=== PATIENT | female | born 1960 | race American Indian/Alaskan Native ===

== ENCOUNTER 2016-06-14 16:21 | Emergency (ER) | payer OTHER ==
--- NOTE | 2016-06-14 17:08 | Emergency Department Report ---
Chief Complaint: Headache Stated Complaint: COUGH/HEAD PAIN Time Seen by Provider: 06/14/16 16:58 - HPI History of Present Illness: 56-year-old female presents today complaining of cough and headache. Patient's states that she's been coughing and wheezing times one week. Complains of headache that comes and goes 3 days over her left temporal region. Denies head injury or trauma. Positive for history of headaches but states she was diagnosed with a brain tumor at the time that resolved postsurgery. Denies chest pain, shortness of breath, abdominal pain. - ROS Review of Systems: Per HPI - Exam Vital Signs: Vital Signs 06/14/16 16:26 Temperature 98 F Pulse Rate 81 Respiratory 18 Rate Blood Pressure 130/87 O2 Sat by Pulse 95 Oximetry Physical Exam: General: 56-year-old female in no acute distress. Well-developed, well- nourished. CV: Regular rate and rhythm. Lungs: Clear to auscultation bilaterally. Neuro: Alert and oriented 3, normal gait, fluid speech, EOMs intact, normal facial sensation, strength exam 5/5 upper and lower extremities, GCS equals 15 MSE screening note: Focused history and physical exam performed. Due to findings the following was ordered: ED Disposition for MSE Condition: Stable
[2016-06-14 18:08] LABS: Hematocrit 37.4 % (30.3-42.9); Hemoglobin 12.2 gm/dl (10.1-14.3); Mean Corpuscular HGB Conc 33 % (30-34); Mean Corpuscular Hemoglobin 28 pg (28-32); Mean Corpuscular Volume 87 fl (79-97); Platelet Count 327 K/mm3 (140-440); Red Blood Count 4.28 M/mm3 (3.65-5.03); Red Cell Distribution Width 16.1 % (13.2-15.2); White Blood Count 6.9 K/mm3 (4.5-11.0)
--- NOTE | 2016-06-14 18:08 | Cat Scan Report ---
FINAL REPORT EXAM: CT HEAD/BRAIN WO CON HISTORY: Headache TECHNIQUE: CT examination of the head without IV contrast PRIORS: 06/05/2015 FINDINGS: Complete opacification of the ethmoid and left frontal sinuses. Near complete opacification of the right frontal sinus and both sphenoid sinuses. Moderate fluid level in left sphenoid sinus. Findings more prominent than comparison. Moderate opacification of the left mastoid air cells inferiorly. Clear right mastoid air cells and middle ear cavities bilaterally. Left mastoid air cell findings unchanged. Again noted is postoperative change with right suboccipital craniectomy. Again noted is unchanged underlying postoperative encephalomalacia with volume loss in the right cerebellar hemisphere. Bone windows demonstrate no acute fracture. The brain is without mass, mass effect, hemorrhage, or acute infarct. There is no extra-axial intracranial bleed, brain bleed, or midline shift. The ventricles and sulci are age-appropriate. IMPRESSION: No acute CVA, intracranial bleed, or brain mass Worsened paranasal sinus disease with fluid levels in the sphenoid sinuses suggesting acute sinusitis Unchanged left mastoid air cell opacification may reflect eustachian tube dysfunction. The differential includes left mastoiditis Stable postoperative changes with encephalomalacia and volume loss in the posteromedial right cerebellar hemisphere
[2016-06-14 18:25] LABS: Anion Gap 20 mmol/L; BUN/Creatinine Ratio 18.33; Blood Urea Nitrogen 11 mg/dL (7-17); Carbon Dioxide 27 mmol/L (22-30); Chloride 102.3 mmol/L (98-107); Glucose 94 mg/dL (65-100); Potassium 4.2 mmol/L (3.6-5.0); Sodium 145 mmol/L (137-145)
[2016-06-14 18:52] LABS: Basophils % (Manual) 0 % (0.0-1.8); Blastocytes % (Manual) 0 %
[2016-06-14 18:53] LABS: Anisocytosis 1+; Poikilocytosis Few
[2016-06-14 18:54] LABS: Diff Status Complete
[2016-06-14 23:49] VITALS: BP 167/95
[2016-06-15] MEDS ORDERED: ATROVENT IH ONE (01:00)
[2016-06-15] MEDS ORDERED: PROVENTIL IH ONE (01:00)
[2016-06-15] MEDS ORDERED: TORADOL IM ONE (01:01)
--- NOTE | 2016-06-15 01:08 | Emergency Department Report ---
HPI - General Chief Complaint: Headache Time Seen by Provider: 06/14/16 16:58 - HPI HPI: Room 10 The patient is a 56-year-old female presenting with a chief complaint of headache. The patient states for 1 week she has had a cough and nasal congestion. The patient states she's been using Claritin generic Flonase antitussin DM without relief. The patient states for the past 3 days she has had intermittent left parietal headache. Patient denies history of fever nausea or vomiting. Location: [see above] Duration: [see above] Quality: Pain Severity: Moderate Modifying factors: [see above] Context: [see above] Mode of transportation: [not driving] ED Past Medical Hx - Past Medical History Hx Hypertension: Yes Hx Asthma: Yes Additional medical history: allergies, normal coronaries - Surgical History Additional Surgical History: brain tumor removed,HYSTERECTOMY - Family History Family history: no significant - Social History Smoking Status: Never Smoker Substance Use Type: None - Medications Home Medications: Home Medications Medication Instructions Recorded Confirmed Last Taken Type Carvedilol [Coreg] 3.125 mg PO BID #60 tablet 07/18/15 03/31/16 01/08/16 Rx Lisinopril [Zestril TAB] 10 mg PO QDAY #30 tablet 07/18/15 03/31/16 01/08/16 Rx ALBUTEROL NEB's [Proventil 0.083% 2.5 mg IH Q2H PRN #30 nebu 04/05/16 Unknown Rx NEBS] Arformoterol Nebu [Brovana Nebu] 15 mcg IH Q12HRT #30 ml 04/05/16 Unknown Rx Benzonatate [Tessalon Perles] 100 mg PO Q8HR PRN #15 capsule 04/05/16 Unknown Rx Budesoni/Formotero 160-4.5(Nf) 2 puff IH BID #1 inha 04/05/16 Unknown Rx [Symbicort 160-4.5 (Nf)] Ipratropium/Albuterol Sulfate 1 ampul IH BIDRT #30 ampul.neb 04/05/16 Unknown Rx [Duoneb 0.5 mg-3 mg/3 ml Soln] Prednisone [predniSONE 10 mg 10 mg PO .TAPER #52 tab 04/05/16 Unknown Rx (6-Day Pack, 21 Tabs)] guaiFENesin [Robitussin] 200 mg PO Q4H PRN #30 oral.liqd 04/05/16 Unknown Rx Azithromycin [Zithromax Z-SAMIRA] 0 mg PO DAILY #6 tab 06/15/16 Unknown Rx HYDROcodone/APAP 5-325 [[place] 1 each PO Q6HR PRN #10 tablet 06/15/16 Unknown Rx 5/325] Promethazine [Phenergan TAB] 25 mg PO Q6HR PRN #10 tab 06/15/16 Unknown Rx ED Review of Systems ROS: Stated complaint: COUGH/HEAD PAIN Other details as noted in HPI Comment: All other systems reviewed and negative Constitutional: denies: chills, fever Eyes: denies: eye pain, eye discharge, vision change ENT: denies: ear pain, throat pain Respiratory: cough Cardiovascular: denies: chest pain, palpitations Endocrine: no symptoms reported Gastrointestinal: denies: abdominal pain, nausea, diarrhea Genitourinary: denies: urgency, dysuria, discharge Musculoskeletal: denies: back pain, joint swelling, arthralgia Skin: denies: rash, lesions Neurological: headache Psychiatric: denies: anxiety, depression Hematological/Lymphatic: denies: easy bleeding, easy bruising Physical Exam - Physical Exam Vital Signs: Vital Signs 06/14/16 06/14/16 16:26 23:48 Temperature 98 F Pulse Rate 81 75 Respiratory 18 20 Rate Blood Pressure 130/87 Blood Pressure 167/95 [Right] O2 Sat by Pulse 95 97 Oximetry Physical Exam: GENERAL: The patient is well-developed well-nourished female lying on stretcher not appearing to be in acute distress. [] HEENT: Normocephalic. Atraumatic. Extraocular motions are intact. Patient has moist mucous membranes. NECK: Supple. No meningitic signs are noted. Trachea midline CHEST/LUNGS: Faint expiratory wheeze. There is no respiratory distress noted. HEART/CARDIOVASCULAR: Regular. There is no tachycardia. There is no gallop rub or murmur. ABDOMEN: Abdomen is soft, nontender. Patient has normal bowel sounds. There is no abdominal distention. SKIN: There is no rash. There is no edema. There is no diaphoresis. NEURO: The patient is awake, alert, and oriented. The patient is cooperative. The patient has no focal neurologic deficits. The patient has normal speech MUSCULOSKELETAL: There is no evidence of acute injury. ED Course Vital Signs 06/14/16 06/14/16 16:26 23:48 Temperature 98 F Pulse Rate 81 75 Respiratory 18 20 Rate Blood Pressure 130/87 Blood Pressure 167/95 [Right] O2 Sat by Pulse 95 97 Oximetry ED Medical Decision Making - Lab Data Result diagrams: 06/14/16 17:51 06/14/16 17:51 Laboratory Tests 06/14/16 06/14/16 17:51 17:51 WBC 6.9 RBC 4.28 Hgb 12.2 Hct 37.4 MCV 87 MCH 28 MCHC 33 RDW 16.1 H Plt Count 327 Eos % (Auto) Line Construction Engineer Add Manual Diff Complete Total Counted 100 Seg Neuts % (Manual) 55.0 Band Neutrophils % 0 Lymphocytes % (Manual) 23.0 Reactive Lymphs % (Man) 0 Monocytes % (Manual) 7.0 Eosinophils % (Manual) 15.0 H Basophils % (Manual) 0 Metamyelocytes % 0 Myelocytes % 0 Promyelocytes % 0 Blast Cells % 0 Nucleated RBC % Not Reportable Seg Neutrophils # Man 3.8 Band Neutrophils # 0.0 Lymphocytes # (Manual) 1.6 Abs React Lymphs (Man) 0.0 Monocytes # (Manual) 0.5 Eosinophils # (Manual) 1.0 H Basophils # (Manual) 0.0 Metamyelocytes # 0.0 Myelocytes # 0.0 Promyelocytes # 0.0 Blast Cells # 0.0 WBC Morphology Not Reportable Hypersegmented Neuts Not Reportable Hyposegmented Neuts Not Reportable Hypogranular Neuts Not Reportable Smudge Cells Not Reportable Toxic Granulation Not Reportable Toxic Vacuolation Not Reportable Dohle Bodies Not Reportable Pelger-Huet Anomaly Not Reportable Manny Rods Not Reportable Platelet Estimate Appears normal Clumped Platelets Not Reportable Plt Clumps, EDTA Not Reportable Large Platelets Not Reportable Giant Platelets Not Reportable Platelet Satelliting Not Reportable Plt Morphology Comment Not Reportable RBC Morphology Not Reportable Dimorphic RBCs Not Reportable Polychromasia Not Reportable Hypochromasia Not Reportable Poikilocytosis Few Anisocytosis 1+ Microcytosis Not Reportable Macrocytosis Not Reportable Spherocytes Not Reportable Pappenheimer Bodies Not Reportable Sickle Cells Not Reportable Target Cells Not Reportable Tear Drop Cells Not Reportable Ovalocytes Not Reportable Helmet Cells Not Reportable [place] Bodies Not Reportable [place] Rings Not Reportable [place] Cells Not Reportable Bite Cells Not Reportable Crenated Cell Not Reportable Elliptocytes Not Reportable Acanthocytes (Spur) Not Reportable Rouleaux Not Reportable Hemoglobin C Crystals Not Reportable Schistocytes Not Reportable Malaria parasites Not Reportable Tony Bodies Not Reportable Hem Pathologist Commnt No Sodium 145 Potassium 4.2 Chloride 102.3 Carbon Dioxide 27 Anion Gap 20 BUN 11 Creatinine 0.6 L Estimated GFR > 60 BUN/Creatinine Ratio 18.33 Glucose 94 Calcium 9.0 - Radiology Data Radiology results: report reviewed (CT head), image reviewed (chest x-ray, CT head) interpreted by me: Chest x-ray-no focal infiltrates, no pneumothorax CT head (read by radiologist)-no acute CVA, intracranial bleed or brain mass. Or some paranasal sinus disease with low levels in the sphenoid sinuses suggesting acute sinusitis. Unchanged left mastoids there cell opacification may reflect eustachian tube dysfunction. The differential includes left mastoiditis. Stable postoperative changes with encephalomalacia and volume loss in the posterior medial right cerebellar hemisphere - Differential Diagnosis ICH, brain mass, headache Critical care attestation.: If time is entered above; I have spent that time in minutes in the direct care of this critically ill patient, excluding procedure time. ED Disposition Clinical Impression: Acute sinusitis, Headache, Asthma exacerbation Disposition: DISCHARGED TO HOME OR SELFCARE Is pt being admited?: No Does the pt Need Aspirin: No Condition: Stable Instructions: Asthma (ED), Sinusitis (ED) Additional Instructions: Return to the emergency department immediately should you develop worsening symptoms, fever, inability to tolerate food or liquid or any other concerns. Prescriptions: Azithromycin [Zithromax Z-SAMIRA] 0 mg PO DAILY #6 tab HYDROcodone/APAP 5-325 [[place] 5/325] 1 each PO Q6HR PRN #10 tablet PRN Reason: Pain Promethazine [Phenergan TAB] 25 mg PO Q6HR PRN #10 tab PRN Reason: Nausea Referrals: SYBIL KAUFMAN MD [Primary Care Provider] - 3-5 Days VLADIMIR BARBOZA MD [Staff Physician] - 3-5 Days (Dr. Barboza is an circuit board repair technician (ear nose and throat doctor). Please follow up with her for further evaluation) Time of Disposition: 01:13
--- NOTE | 2016-06-15 10:41 | XRay Report ---
CHEST 2 VIEWS: FINDINGS: There is atelectasis or infiltrate in the medial segment of the right middle lobe. Otherwise, the lungs are clear. The heart and pulmonary vessels are normal. There is no pleural fluid. IMPRESSION: Minimal right middle lobe atelectasis or infiltrate.
== END 2016-06-15 01:51 | disposition home or self-care (01) ==
LOC: ED 16:21
DX: J01.90 Acute sinusitis, unspecified (principal); J45.901 Unspecified asthma with (acute) exacerbation; R51 Headache; I10 Essential (primary) hypertension
CPT/HCPCS: 36415; 70450; 71020; 80048; 85007; 85025; 94640; 96372; 99284; J1885

== ENCOUNTER 2016-09-04 21:18 | Emergency (ER) | payer OTHER ==
[2016-09-04] MEDS ORDERED: BENADRYL IM ONE (23:53)
[2016-09-04] MEDS ORDERED: DECADRON IM ONE (23:53)
[2016-09-04] MEDS ORDERED: TYLENOL #3 PO ONE (23:53)
--- NOTE | 2016-09-04 23:53 | Emergency Department Report ---
- General Chief complaint: Animal Bite Stated complaint: BUG STING/BILATERAL EYE/L SHOULDER PAIN Time Seen by Provider: 09/04/16 23:36 Source: patient, family Mode of arrival: Ambulatory Limitations: No Limitations - History of Present Illness Initial comments: Patient here reports that she got stung by something but she doesn't know what it is. She said her forehead to the middle is red swollen and it hurts. She reports pain is 6 out of 10 and achy and. Denies any headache. She said there is swelling beside her eyes. She said this happened 4 days ago but it's gotten worse today. She reports itching. No medication taken per patient. She denies any change in her vision or pain in her eyes. She reports the pain is at the bite area on her for it. Denies any swelling of throat, itchy throat, coughing, wheezing, stridor or chest pain and shortness of breath. Blood pressure in triage is 163/111 and she is asymptomatic. Patient has a history of high blood pressure and takes medication but she says she did not take her medicine today. Denies any fever or chills. MD complaint: insect bite/sting, other (redness and swelling to forehead. Swelling to side both eyes.) Onset/Timin -: days(s) Tetanus Up to Date: yes Location: head, face Severity: moderate Severity scale (0 -10): 6 Quality: aching, other (itching) Consistency: constant Improves with: none Worsens with: palpation Context: witnessed insect bite Associated symptoms: denies other symptoms Treatments Prior to Arrival: none - Related Data Previous Rx's Medication Instructions Recorded Last Taken Type Carvedilol [Coreg] 3.125 mg PO BID #60 tablet 07/18/15 01/08/16 Rx Lisinopril [Zestril TAB] 10 mg PO QDAY #30 tablet 07/18/15 01/08/16 Rx ALBUTEROL NEB's [Proventil 0.083% 2.5 mg IH Q2H PRN #30 nebu 04/05/16 Unknown Rx NEBS] Arformoterol Nebu [Brovana Nebu] 15 mcg IH Q12HRT #30 ml 04/05/16 Unknown Rx Benzonatate [Tessalon Perles] 100 mg PO Q8HR PRN #15 capsule 04/05/16 Unknown Rx Budesoni/Formotero 160-4.5(Nf) 2 puff IH BID #1 inha 04/05/16 Unknown Rx [Symbicort 160-4.5 (Nf)] Ipratropium/Albuterol Sulfate 1 ampul IH BIDRT #30 ampul.neb 04/05/16 Unknown Rx [Duoneb 0.5 mg-3 mg/3 ml Soln] Prednisone [predniSONE 10 mg 10 mg PO .TAPER #52 tab 04/05/16 Unknown Rx (6-Day Pack, 21 Tabs)] guaiFENesin [Robitussin] 200 mg PO Q4H PRN #30 oral.liqd 04/05/16 Unknown Rx Azithromycin [Zithromax Z-SAMIRA] 0 mg PO DAILY #6 tab 06/15/16 Unknown Rx HYDROcodone/APAP 5-325 [[place] 1 each PO Q6HR PRN #10 tablet 06/15/16 Unknown Rx 5/325] Promethazine [Phenergan TAB] 25 mg PO Q6HR PRN #10 tab 06/15/16 Unknown Rx HYDROcodone/HOMATROP 5-1.5 5 ml PO Q4HR PRN #150 ml 06/17/16 Unknown Rx [HYDROcodone-Homatropin 5-1.5 mg per 5 ML] Prednisone [predniSONE 10 mg 10 mg PO .TAPER #1 tab.ds.pk 06/17/16 Unknown Rx (6-Day Pack, 21 Tabs)] Pantoprazole [Protonix TAB] 20 mg PO QDAY #30 tablet. 06/18/16 Unknown Rx Bacitracin/Polymixin B [Polysporin] 1 applic TP BID #1 tube 09/05/16 Unknown Rx Cetirizine HCl [ZyrTEC] 10 mg PO QAM #5 capsule 09/05/16 Unknown Rx Sulfamethoxazole/Trimethoprim 1 each PO BID #20 tablet 09/05/16 Unknown Rx [Bactrim DS TAB] predniSONE [Deltasone] 20 mg PO QDAY #3 tab 09/05/16 Unknown Rx traMADol [Ultram] 50 mg PO Q6HR PRN #20 tablet 09/05/16 Unknown Rx Allergies Allergy/AdvReac Type Severity Reaction Status Date / Time Penicillins Allergy Rash Verified 05/30/15 13:40 Abscess Boil HPI - HPI Chief Complaint: Animal Bite Stated Complaint: BUG STING/BILATERAL EYE/L SHOULDER PAIN Time Seen by Provider: 09/04/16 23:36 Home Medications: Previous Rx's Medication Instructions Recorded Last Taken Type Carvedilol [Coreg] 3.125 mg PO BID #60 tablet 07/18/15 01/08/16 Rx Lisinopril [Zestril TAB] 10 mg PO QDAY #30 tablet 07/18/15 01/08/16 Rx ALBUTEROL NEB's [Proventil 0.083% 2.5 mg IH Q2H PRN #30 nebu 04/05/16 Unknown Rx NEBS] Arformoterol Nebu [Brovana Nebu] 15 mcg IH Q12HRT #30 ml 04/05/16 Unknown Rx Benzonatate [Tessalon Perles] 100 mg PO Q8HR PRN #15 capsule 04/05/16 Unknown Rx Budesoni/Formotero 160-4.5(Nf) 2 puff IH BID #1 inha 04/05/16 Unknown Rx [Symbicort 160-4.5 (Nf)] Ipratropium/Albuterol Sulfate 1 ampul IH BIDRT #30 ampul.neb 04/05/16 Unknown Rx [Duoneb 0.5 mg-3 mg/3 ml Soln] Prednisone [predniSONE 10 mg 10 mg PO .TAPER #52 tab 04/05/16 Unknown Rx (6-Day Pack, 21 Tabs)] guaiFENesin [Robitussin] 200 mg PO Q4H PRN #30 oral.liqd 04/05/16 Unknown Rx Azithromycin [Zithromax Z-SAMIRA] 0 mg PO DAILY #6 tab 06/15/16 Unknown Rx HYDROcodone/APAP 5-325 [[place] 1 each PO Q6HR PRN #10 tablet 06/15/16 Unknown Rx 5/325] Promethazine [Phenergan TAB] 25 mg PO Q6HR PRN #10 tab 06/15/16 Unknown Rx HYDROcodone/HOMATROP 5-1.5 5 ml PO Q4HR PRN #150 ml 06/17/16 Unknown Rx [HYDROcodone-Homatropin 5-1.5 mg per 5 ML] Prednisone [predniSONE 10 mg 10 mg PO .TAPER #1 tab.ds.pk 06/17/16 Unknown Rx (6-Day Pack, 21 Tabs)] Pantoprazole [Protonix TAB] 20 mg PO QDAY #30 tablet. 06/18/16 Unknown Rx Bacitracin/Polymixin B [Polysporin] 1 applic TP BID #1 tube 09/05/16 Unknown Rx Cetirizine HCl [ZyrTEC] 10 mg PO QAM #5 capsule 09/05/16 Unknown Rx Sulfamethoxazole/Trimethoprim 1 each PO BID #20 tablet 09/05/16 Unknown Rx [Bactrim DS TAB] predniSONE [Deltasone] 20 mg PO QDAY #3 tab 09/05/16 Unknown Rx traMADol [Ultram] 50 mg PO Q6HR PRN #20 tablet 09/05/16 Unknown Rx Allergies/Adverse Reactions: Allergies Allergy/AdvReac Type Severity Reaction Status Date / Time Penicillins Allergy Rash Verified 05/30/15 13:40 ED Review of Systems ROS: Stated complaint: BUG STING/BILATERAL EYE/L SHOULDER PAIN Other details as noted in HPI Comment: All other systems reviewed and negative Constitutional: denies: chills, fever Eyes: denies: eye pain, eye discharge, vision change ENT: denies: ear pain, throat pain, congestion Respiratory: no symptoms reported Cardiovascular: denies: chest pain, palpitations, edema, syncope Musculoskeletal: arthralgia (left shoulder which is chronic). denies: back pain , joint swelling Skin: pruritus, other (status post insect bike 4 days ago with swelling to the facial area beside eyes and redness and pain to mid forehead.) Neurological: denies: headache, weakness, numbness, paresthesias, confusion, abnormal gait, vertigo ED Past Medical Hx - Past Medical History Previous Medical History?: Yes Hx Hypertension: Yes Hx Asthma: Yes Additional medical history: allergies, normal coronaries - Surgical History Past Surgical History?: Yes Additional Surgical History: brain tumor removed,HYSTERECTOMY - Family History Family history: hypertension - Social History Smoking Status: Never Smoker Substance Use Type: None - Medications Home Medications: Home Medications Medication Instructions Recorded Confirmed Last Taken Type Carvedilol [Coreg] 3.125 mg PO BID #60 tablet 07/18/15 03/31/16 01/08/16 Rx Lisinopril [Zestril TAB] 10 mg PO QDAY #30 tablet 07/18/15 03/31/16 01/08/16 Rx ALBUTEROL NEB's [Proventil 0.083% 2.5 mg IH Q2H PRN #30 nebu 04/05/16 Unknown Rx NEBS] Arformoterol Nebu [Brovana Nebu] 15 mcg IH Q12HRT #30 ml 04/05/16 Unknown Rx Benzonatate [Tessalon Perles] 100 mg PO Q8HR PRN #15 capsule 04/05/16 Unknown Rx Budesoni/Formotero 160-4.5(Nf) 2 puff IH BID #1 inha 04/05/16 Unknown Rx [Symbicort 160-4.5 (Nf)] Ipratropium/Albuterol Sulfate 1 ampul IH BIDRT #30 ampul.neb 04/05/16 Unknown Rx [Duoneb 0.5 mg-3 mg/3 ml Soln] Prednisone [predniSONE 10 mg 10 mg PO .TAPER #52 tab 04/05/16 Unknown Rx (6-Day Pack, 21 Tabs)] guaiFENesin [Robitussin] 200 mg PO Q4H PRN #30 oral.liqd 04/05/16 Unknown Rx Azithromycin [Zithromax Z-SAMIRA] 0 mg PO DAILY #6 tab 06/15/16 Unknown Rx HYDROcodone/APAP 5-325 [[place] 1 each PO Q6HR PRN #10 tablet 06/15/16 Unknown Rx 5/325] Promethazine [Phenergan TAB] 25 mg PO Q6HR PRN #10 tab 06/15/16 Unknown Rx HYDROcodone/HOMATROP 5-1.5 5 ml PO Q4HR PRN #150 ml 06/17/16 Unknown Rx [HYDROcodone-Homatropin 5-1.5 mg per 5 ML] Prednisone [predniSONE 10 mg 10 mg PO .TAPER #1 tab.ds.pk 06/17/16 Unknown Rx (6-Day Pack, 21 Tabs)] Pantoprazole [Protonix TAB] 20 mg PO QDAY #30 tablet.dr 06/18/16 Unknown Rx Bacitracin/Polymixin B [Polysporin] 1 applic TP BID #1 tube 09/05/16 Unknown Rx Cetirizine HCl [ZyrTEC] 10 mg PO QAM #5 capsule 09/05/16 Unknown Rx Sulfamethoxazole/Trimethoprim 1 each PO BID #20 tablet 09/05/16 Unknown Rx [Bactrim DS TAB] predniSONE [Deltasone] 20 mg PO QDAY #3 tab 09/05/16 Unknown Rx traMADol [Ultram] 50 mg PO Q6HR PRN #20 tablet 09/05/16 Unknown Rx ED Physical Exam - General Limitations: No Limitations General appearance: alert, in no apparent distress - Head Head exam: Present: atraumatic, normocephalic, normal inspection - Eye Eye exam: Present: normal appearance, PERRL, EOMI. Absent: conjunctival injection, periorbital swelling, periorbital tenderness Pupils: Present: normal accommodation - ENT ENT exam: Present: normal exam, normal orophraynx, mucous membranes moist, TM's normal bilaterally, normal external ear exam, other (uvula is midline and oral airways patent) - Neck Neck exam: Present: normal inspection, full ROM. Absent: tenderness, meningismus, lymphadenopathy - Expanded Neck Exam Expanded Neck exam: Absent: tenderness, midline deformity, anterior neck swelling, tracheal deviation - Respiratory Respiratory exam: Present: normal lung sounds bilaterally. Absent: respiratory distress, chest wall tenderness - Cardiovascular Cardiovascular Exam: Present: regular rate, normal rhythm, normal heart sounds - Extremities Exam Extremities exam: Present: normal inspection, full ROM, normal capillary refill. Absent: tenderness, pedal edema, joint swelling, calf tenderness - Expanded Upper Extremity Exam Left General: Present: normal inspection Shoulder Exam: Present: normal inspection, full ROM. Absent: tenderness, swelling, abrasion, laceration, ecchymosis, deformity, crepidus, dislocation, erythema, tenderness over AC joint Upper Arm exam: Present: normal inspection, full ROM. Absent: tenderness, swelling, abrasion, laceration, ecchymosis, deformity, crepidus, dislocation, erythema Elbow exam: Present: normal inspection, full ROM. Absent: tenderness, swelling , abrasion, laceration, ecchymosis, deformity, crepidus, dislocation, erythema, effusion, pain w/ pronation/supination, tenderness over radial head Forearm Wrist exam: Present: normal inspection, full ROM. Absent: tenderness, swelling, abrasion, laceration, ecchymosis, deformity, crepidus, dislocation, erythema, tenderness over anatomical snuff box, pain with axial thumb loading Hand Wrist exam: Present: normal inspection, full ROM. Absent: tenderness, swelling, abrasion, laceration, ecchymosis, deformity, crepidus, dislocation, erythema, amputation, nail avulsion, subungual hematoma Neuro motor exam: Present: wrist extension intact, thumb opposition intact, thumb IP flexion intact, thumb adduction intact, fingers 2-5 abduction intact Neurosensory exam: Present: 2-point discrimination, radial nerve intact, ulnar nerve intact, median nerve intact Vascular: Present: normal capillary refill, radial pulse, brachial pulse, ulnar pulse. Absent: vascular compromise, Pallo, pulse deficit radial art, pulse deficit ulnar art, pulse deficit brachial art - Back Exam Back exam: Present: normal inspection, full ROM - Neurological Exam Neurological exam: Present: alert, oriented X3, normal gait - Psychiatric Psychiatric exam: Present: normal affect, normal mood - Skin Skin exam: Present: warm, dry, erythema - Expanded Skin Exam Expanded Distribution of rash: head (Mid forehead) Description of rash: Present: size (0.5 cm), tenderness, erythematous, swelling , crusting, other (patient with mild swelling and tenderness to palpate to mid forehead with crusting. she also has minimal swelling below eyes and at right facial area.). Absent: discharge, fluctuant, indurated ED Course Vital Signs 09/04/16 09/04/16 09/05/16 22:13 23:55 00:09 Temperature 99.6 F Pulse Rate 79 Respiratory 18 20 Rate Blood Pressure 163/111 Blood Pressure 130/90 [Left] O2 Sat by Pulse 99 Oximetry - Reevaluation(s) Reevaluation #1: 09/05/16 00:27 Patient given Benadryl 50 mg IM, Decadron 10 mg IM for minor allergic reaction from insect bite/sting. She was also given Tylenol 3 2 tablets emergency room for complains of pain to insect bite site and also to her left shoulder. ED Medical Decision Making - Medical Decision Making ED course: Patient status post minor allergic reaction to for head with cellulitis that is localized to mid forehead and mild swelling to facial area. I exam is normal. Patient was given Benadryl 50 mg IM, Decadron 10 mg IM for minor allergic reaction. She is also complaining of left shoulder pain which is chronic and denies any injury. She was given Tylenol 3 2 tablets in emergency room for shoulder pain and pain at cellulitic site to forehead. I discussed with patient her diagnosis and treatment plan and she is in agreement and voiced understanding. Area to left forehead cleansed with normal saline, chip antibiotic ointment placed followed by a Band-Aid. Patient discharged home with prescription for Zyrtec, prednisone, bacitracin and Bactrim and Ultram. I discussed with her that she is to follow-up with her primary care physician in 2-3 days. Critical care attestation.: If time is entered above; I have spent that time in minutes in the direct care of this critically ill patient, excluding procedure time. ED Disposition Clinical Impression: Cellulitis of forehead, Arthralgia of shoulder region, left Insect bite Qualifiers: Encounter type: initial encounter Qualified Code(s): W57.XXXA - Bitten or stung by nonvenomous insect and other nonvenomous arthropods, initial encounter Minor allergic reaction Qualifiers: Encounter type: initial encounter Qualified Code(s): T78.40XA - Allergy, unspecified, initial encounter Disposition: DISCHARGED TO HOME OR SELFCARE Is pt being admited?: No Does the pt Need Aspirin: No Condition: Stable Instructions: Insect Bite or Sting (ED), Urticaria (ED), Cellulitis (ED), Arthralgia (ED) Additional Instructions: Please follow-up with your primary care physician in 2-3 days Please take medication as discussed. Clean affected area with normal saline and apply bacitracin ointment twice a day. If you notice, increased redness, swelling, fever and/or chills please return to emergency room [facility]. Prescriptions: Bacitracin/Polymixin B [Polysporin] 1 applic TP BID #1 tube Cetirizine HCl [ZyrTEC] 10 mg PO QAM #5 capsule predniSONE [Deltasone] 20 mg PO QDAY #3 tab Sulfamethoxazole/Trimethoprim [Bactrim DS TAB] 1 each PO BID #20 tablet traMADol [Ultram] 50 mg PO Q6HR PRN #20 tablet PRN Reason: Pain Referrals: PRIMARY CARE,MD [Primary Care Provider] - 2-3 Days Forms: Work/School Release Form(ED), Accompanied Note
[2016-09-04] MEDS ORDERED: TRIPLE ANTIBIOTIC TP ONE (23:54)
[2016-09-04 23:55] VITALS: BP 130/90
== END 2016-09-05 01:15 | disposition home or self-care (01) ==
LOC: ED 21:18
DX: S00.86XA Insect bite (nonvenomous) of other part of head, initial encounter (principal); L03.811 Cellulitis of head [any part, except face]; M25.511 Pain in right shoulder; T78.40XA Allergy, unspecified, initial encounter; J45.909 Unspecified asthma, uncomplicated; I10 Essential (primary) hypertension; Z88.0 Allergy status to penicillin; W57.XXXA Bitten or stung by nonvenomous insect and other nonvenomous arthropods, initial encounter; Y93.89 Activity, other specified; Y99.8 Other external cause status; Y92.89 Other specified places as the place of occurrence of the external cause
CPT/HCPCS: 96372; 99282; J1100; J1200; A6250

== ENCOUNTER 2016-11-02 10:35 | Emergency (ER) | payer OTHER ==
[2016-11-02] MEDS: DUONEB *Not for PRN Use IH SCH ×4 (11:02→20:21)
[2016-11-02] MEDS ORDERED: TESSALON PERLES PO ONE (19:27)
[2016-11-02] MEDS ORDERED: DELTASONE PO ONE (19:27)
[2016-11-02] MEDS ORDERED: ZITHROMAX PO ONE (19:27)
[2016-11-02] MEDS ORDERED: CATAPRES PO ONE (20:04)
--- NOTE | 2016-11-02 20:07 | Emergency Department Report ---
HPI - General Chief Complaint: Upper Respiratory Infection Time Seen by Provider: 11/02/16 18:11 - HPI HPI: The patient is a 56-year-old female presents for evaluation of cough and dyspnea. The patient has a history of asthma. The patient reports progressively worsening cough for the past one week, and constant and severe dyspnea for the past one day, exacerbated with coughing and exertion, and relieved with rest and albuterol breathing treatments. The patient denies fever , chest pain, syncope, hemoptysis, unilateral leg swelling, oral contraceptive use, recent immobilization, history of DVT or PE, recent cancer, history of familial coagulation disorder. ED Past Medical Hx - Past Medical History Previous Medical History?: Yes Hx Hypertension: Yes Hx Asthma: Yes Additional medical history: allergies, normal coronaries - Surgical History Past Surgical History?: Yes Additional Surgical History: brain tumor removed,HYSTERECTOMY - Social History Smoking Status: Never Smoker Substance Use Type: Alcohol, Prescribed - Medications Home Medications: Home Medications Medication Instructions Recorded Confirmed Last Taken Type Carvedilol [Coreg] 3.125 mg PO BID #60 tablet 07/18/15 03/31/16 01/08/16 Rx Lisinopril [Zestril TAB] 10 mg PO QDAY #30 tablet 07/18/15 03/31/16 01/08/16 Rx ALBUTEROL NEB's [Proventil 0.083% 2.5 mg IH Q2H PRN #30 nebu 04/05/16 Unknown Rx NEBS] Arformoterol Nebu [Brovana Nebu] 15 mcg IH Q12HRT #30 ml 04/05/16 Unknown Rx Benzonatate [Tessalon Perles] 100 mg PO Q8HR PRN #15 capsule 04/05/16 Unknown Rx Budesoni/Formotero 160-4.5(Nf) 2 puff IH BID #1 inha 04/05/16 Unknown Rx [Symbicort 160-4.5 (Nf)] Ipratropium/Albuterol Sulfate 1 ampul IH BIDRT #30 ampul.neb 04/05/16 Unknown Rx [DUONEB *Not for PRN Use*] Prednisone [predniSONE 10 mg 10 mg PO .TAPER #52 tab 04/05/16 Unknown Rx (6-Day Pack, 21 Tabs)] guaiFENesin [Robitussin] 200 mg PO Q4H PRN #30 oral.liqd 04/05/16 Unknown Rx Azithromycin [Zithromax Z-SAMIRA] 0 mg PO DAILY #6 tab 06/15/16 Unknown Rx HYDROcodone/APAP 5-325 [[place] 1 each PO Q6HR PRN #10 tablet 06/15/16 Unknown Rx 5/325] Promethazine [Phenergan TAB] 25 mg PO Q6HR PRN #10 tab 06/15/16 Unknown Rx HYDROcodone/HOMATROP 5-1.5 5 ml PO Q4HR PRN #150 ml 06/17/16 Unknown Rx [HYDROcodone-Homatropin 5-1.5 mg per 5 ML] Prednisone [predniSONE 10 mg 10 mg PO .TAPER #1 tab.ds.pk 06/17/16 Unknown Rx (6-Day Pack, 21 Tabs)] Pantoprazole [Protonix TAB] 20 mg PO QDAY #30 tablet. 06/18/16 Unknown Rx Bacitracin/Polymixin B [Polysporin] 1 applic TP BID #1 tube 09/05/16 Unknown Rx Cetirizine HCl [ZyrTEC] 10 mg PO QAM #5 capsule 09/05/16 Unknown Rx Sulfamethoxazole/Trimethoprim 1 each PO BID #20 tablet 09/05/16 Unknown Rx [Bactrim DS TAB] predniSONE [Deltasone] 20 mg PO QDAY #3 tab 09/05/16 Unknown Rx traMADol [Ultram] 50 mg PO Q6HR PRN #20 tablet 09/05/16 Unknown Rx ALBUTEROL Inhaler [ProAir HFA 2 puff IH QID PRN #1 inhalation 11/02/16 Unknown Rx Inhaler] Azithromycin [Zithromax Z-SAMIRA] 250 mg PO QDAY #6 tablet 11/02/16 Unknown Rx Phenylephrine/Dm/Acetaminop/GG 20 ml PO Q4HR PRN #180 liquid 11/02/16 Unknown Rx [Mucinex Uztz-Poy-Ywwljziosj Lq] predniSONE [Deltasone] 20 mg PO QDAY #5 tab 11/02/16 Unknown Rx ED Review of Systems ROS: Stated complaint: COUGHING/WHEEZING Other details as noted in HPI Constitutional: denies: fever ENT: denies: throat or neck pain Respiratory:reports cough, shortness of breath Cardiovascular: denies: chest pain Endocrine: denies unexplained weight loss or gain Gastrointestinal: denies: abdominal pain, nausea Genitourinary: denies: dysuria Musculoskeletal: denies: leg swelling Skin: denies: rash Neurological: denies: headache Hematological/Lymphatic: denies: easy bleeding or easy bruising Psych: denies sadness or hopelessness Physical Exam - Physical Exam Vital Signs: Vital Signs 11/02/16 11/02/16 11/02/16 10:48 11:05 11:13 Temperature 97.8 F Pulse Rate 85 Pulse Rate [ 88 89 Bilateral Upper Lobe] Respiratory 20 Rate Respiratory 18 18 Rate [Bilateral Upper Lobe] Blood Pressure 150/110 O2 Sat by Pulse 96 Oximetry 11/02/16 18:58 Temperature Pulse Rate Pulse Rate [ Bilateral Upper Lobe] Respiratory 18 Rate Respiratory Rate [Bilateral Upper Lobe] Blood Pressure O2 Sat by Pulse 100 Oximetry Physical Exam: General: well-nourished, well-developed, no acute distress Head: Normocephalic, atraumatic Eyes: normal sclera ENT: Mucous membranes are pink and moist Neck: trachea midline, neck supple, No neck stiffness, no cervical adenopathy Respiratory: Mildly diminished wheezing and expiratory wheezing present to bilateral lung murphy Cardio: S1 and S2 present, no murmurs, rubs, gallops, capillary refill is brisk Abdomen: Normoactive bowel sounds, soft abdomen, no rigidity, no guarding or rebound tenderness Chest WALL/Back: No tenderness to palpation of the chest wall, no CVA tenderness with percussion Musc: No pitting edema Skin: No rash Neuro: no facial drooping, normal speech Psych: Normal affect ED Course Vital Signs 11/02/16 11/02/16 11/02/16 10:48 11:05 11:13 Temperature 97.8 F Pulse Rate 85 Pulse Rate [ 88 89 Bilateral Upper Lobe] Respiratory 20 Rate Respiratory 18 18 Rate [Bilateral Upper Lobe] Blood Pressure 150/110 O2 Sat by Pulse 96 Oximetry 11/02/16 18:58 Temperature Pulse Rate Pulse Rate [ Bilateral Upper Lobe] Respiratory 18 Rate Respiratory Rate [Bilateral Upper Lobe] Blood Pressure O2 Sat by Pulse 100 Oximetry ED Medical Decision Making - Medical Decision Making The patient was seen and examined by myself. The patient is placed on a manager monitoring and continuous pulse ox. On initial evaluation, the patient was found to be in no distress. Evaluation orders were placed. The patient is given a breathing treatment and prednisone for txt of COPD, and Tessalon Perles for treatment of cough. Chest x-ray negative for focal consolidation, pleural effusions, pulmonary congestion, pneumothorax, or other acute cardio pulmonary disease process. Lab results are grossly not concerning. The patient was reevaluated and reported that their symptoms were markedly improved. The patient is stable for discharge with outpatient follow-up. The patient is given follow-up and return instructions. The patient expressed understanding and agreed with the plan. The patient is given a prescription for prednisone. The patient is discharged in stable condition. Critical care attestation.: If time is entered above; I have spent that time in minutes in the direct care of this critically ill patient, excluding procedure time. ED Disposition Clinical Impression: Bronchitis with asthma, acute Acute asthma exacerbation Qualifiers: Asthma severity: mild intermittent Qualified Code(s): J45.21 - Mild intermittent asthma with (acute) exacerbation Disposition: TO HOME OR SELFCARE Is pt being admited?: No Does the pt Need Aspirin: No Condition: Stable Instructions: Acute Bronchitis (ED), Asthma (ED) Prescriptions: ALBUTEROL Inhaler [ProAir HFA Inhaler] 2 puff IH QID PRN #1 inhalation PRN Reason: Shortness Of Breath Azithromycin [Zithromax Z-SAMIRA] 250 mg PO QDAY #6 tablet Phenylephrine/Dm/Acetaminop/GG [Mucinex Gssp-Gmy-Mlfdolvnyf Lq] 20 ml PO Q4HR PRN #180 liquid PRN Reason: cough and sore throat predniSONE [Deltasone] 20 mg PO QDAY #5 tab Referrals: PRIMARY CARE, [Primary Care Provider] - 3-5 Days Time of Disposition: 20:03
[2016-11-02 20:17] VITALS: BP 129/82
--- NOTE | 2016-11-03 07:37 | XRay Report ---
PORTABLE CHEST INDICATION: Chest pain. COMPARISON: 06/17/2016 FINDINGS: Portable, frontal chest radiograph demonstrate stable cardiomediastinal silhouette. No significant pleural effusions or CHF. Slight bibasilar atelectasis and crowded markings. Demineralized bones with few degenerative changes. CONCLUSION: Slight bibasilar atelectasis, as described. Thank you for the opportunity to participate in this patient's care.
== END 2016-11-02 20:38 | disposition home or self-care (01) ==
LOC: ED 10:35
DX: J45.901 Unspecified asthma with (acute) exacerbation (principal); J40 Bronchitis, not specified as acute or chronic; I10 Essential (primary) hypertension; J45.909 Unspecified asthma, uncomplicated
CPT/HCPCS: 71010; 94640; 99284; J7512

== ENCOUNTER 2016-11-17 15:08 | Emergency (ER) | payer OTHER ==
[2016-11-17 15:49] LABS: Basophils % (Auto) 0.6 % (0.0-1.8); Eosinophils % (Auto) 4.8 % (0.0-4.3); Hematocrit 38.6 % (30.3-42.9); Hemoglobin 12.6 gm/dl (10.1-14.3); Mean Corpuscular HGB Conc 33 % (30-34); Mean Corpuscular Hemoglobin 28 pg (28-32); Mean Corpuscular Volume 84 fl (79-97); Platelet Count 285 K/mm3 (140-440); Red Blood Count 4.58 M/mm3 (3.65-5.03); Red Cell Distribution Width 16.1 % (13.2-15.2); White Blood Count 4.7 K/mm3 (4.5-11.0)
[2016-11-17 16:04] LABS: Anion Gap 22 mmol/L; BUN/Creatinine Ratio 16.66; Blood Urea Nitrogen 10 mg/dL (7-17); Calcium 9.5 mg/dL (8.4-10.2); Carbon Dioxide 25 mmol/L (22-30); Chloride 102.8 mmol/L (98-107); Glucose 118 mg/dL (65-100); Potassium 4.4 mmol/L (3.6-5.0); Sodium 145 mmol/L (137-145)
[2016-11-17] MEDS ORDERED: PROVENTIL IH ONE (19:54)
[2016-11-17] MEDS ORDERED: ATROVENT IH ONE (19:54)
[2016-11-17] MEDS ORDERED: DELTASONE PO ONE (19:55)
--- NOTE | 2016-11-17 19:58 | Emergency Department Report ---
ED General Adult HPI - General Chief complaint: Dyspnea/Respdistress Stated complaint: WEAK/ANXIETY Time Seen by Provider: 11/17/16 19:47 Source: patient Mode of arrival: Ambulatory Limitations: No Limitations - History of Present Illness Initial comments: Patient is a 56-year-old female past medical history of high blood pressure and asthma. Who presents with shortness of breath that occurred this morning. Symptoms are moderate walking makes the symptoms worse and rest makes it better. Patient states that she was in the dentist office when she became anxious and then she got really short of breath. She has tried her inhaler with no relief. Patient states that for the last week she has been coughing up green mucus. She denies any leg swelling or any chest pain Patient has a history of being intubated and going to the ICU for her asthma. - Related Data Previous Rx's Medication Instructions Recorded Last Taken Type Carvedilol [Coreg] 3.125 mg PO BID #60 tablet 07/18/15 01/08/16 Rx Lisinopril [Zestril TAB] 10 mg PO QDAY #30 tablet 07/18/15 01/08/16 Rx Arformoterol Nebu [Brovana Nebu] 15 mcg IH Q12HRT #30 ml 04/05/16 Unknown Rx Benzonatate [Tessalon Perles] 100 mg PO Q8HR PRN #15 capsule 04/05/16 Unknown Rx Budesoni/Formotero 160-4.5(Nf) 2 puff IH BID #1 inha 04/05/16 Unknown Rx [Symbicort 160-4.5 (Nf)] Ipratropium/Albuterol Sulfate 1 ampul IH BIDRT #30 ampul.neb 04/05/16 Unknown Rx [DUONEB *Not for PRN Use*] Prednisone [predniSONE 10 mg 10 mg PO .TAPER #52 tab 04/05/16 Unknown Rx (6-Day Pack, 21 Tabs)] guaiFENesin [Robitussin] 200 mg PO Q4H PRN #30 oral.liqd 04/05/16 Unknown Rx Azithromycin [Zithromax Z-SAMIRA] 0 mg PO DAILY #6 tab 06/15/16 Unknown Rx HYDROcodone/APAP 5-325 [[place] 1 each PO Q6HR PRN #10 tablet 06/15/16 Unknown Rx 5/325] Promethazine [Phenergan TAB] 25 mg PO Q6HR PRN #10 tab 06/15/16 Unknown Rx HYDROcodone/HOMATROP 5-1.5 5 ml PO Q4HR PRN #150 ml 06/17/16 Unknown Rx [HYDROcodone-Homatropin 5-1.5 mg per 5 ML] Prednisone [predniSONE 10 mg 10 mg PO .TAPER #1 tab.ds.pk 06/17/16 Unknown Rx (6-Day Pack, 21 Tabs)] Pantoprazole [Protonix TAB] 20 mg PO QDAY #30 tablet. 06/18/16 Unknown Rx Bacitracin/Polymixin B [Polysporin] 1 applic TP BID #1 tube 09/05/16 Unknown Rx Cetirizine HCl [ZyrTEC] 10 mg PO QAM #5 capsule 09/05/16 Unknown Rx Sulfamethoxazole/Trimethoprim 1 each PO BID #20 tablet 09/05/16 Unknown Rx [Bactrim DS TAB] predniSONE [Deltasone] 20 mg PO QDAY #3 tab 09/05/16 Unknown Rx traMADol [Ultram] 50 mg PO Q6HR PRN #20 tablet 09/05/16 Unknown Rx Azithromycin [Zithromax Z-SAMIRA] 250 mg PO QDAY #6 tablet 11/02/16 Unknown Rx Phenylephrine/Dm/Acetaminop/GG 20 ml PO Q4HR PRN #180 liquid 11/02/16 Unknown Rx [Mucinex Upng-Rdx-Itporwmdxo Lq] predniSONE [Deltasone] 20 mg PO QDAY #5 tab 11/02/16 Unknown Rx ALBUTEROL Inhaler [ProAir HFA 2 puff IH QID PRN #1 inhalation 11/17/16 Unknown Rx Inhaler] ALBUTEROL NEB's [Proventil 0.083% 2.5 mg IH Q2H PRN #30 nebu 11/17/16 Unknown Rx NEBS] predniSONE [Deltasone] 20 mg PO BID #10 tab 11/17/16 Unknown Rx Allergies Allergy/AdvReac Type Severity Reaction Status Date / Time Penicillins Allergy Rash Verified 05/30/15 13:40 ED Review of Systems ROS: Stated complaint: WEAK/ANXIETY Other details as noted in HPI Constitutional: denies: chills, fever Eyes: denies: eye pain, eye discharge, vision change Respiratory: cough, shortness of breath Cardiovascular: denies: chest pain, palpitations Endocrine: no symptoms reported Gastrointestinal: denies: abdominal pain, nausea, diarrhea Genitourinary: denies: urgency, dysuria, discharge Musculoskeletal: denies: back pain, joint swelling, arthralgia Skin: denies: rash, lesions Neurological: denies: headache, weakness, paresthesias Psychiatric: denies: anxiety, depression Hematological/Lymphatic: denies: easy bleeding, easy bruising ED Past Medical Hx - Past Medical History Previous Medical History?: Yes Hx Hypertension: Yes Hx Asthma: Yes Additional medical history: allergies, normal coronaries - Surgical History Additional Surgical History: brain tumor removed,HYSTERECTOMY - Social History Smoking Status: Never Smoker Substance Use Type: None - Medications Home Medications: Home Medications Medication Instructions Recorded Confirmed Last Taken Type Carvedilol [Coreg] 3.125 mg PO BID #60 tablet 07/18/15 03/31/16 01/08/16 Rx Lisinopril [Zestril TAB] 10 mg PO QDAY #30 tablet 07/18/15 03/31/16 01/08/16 Rx Arformoterol Nebu [Brovana Nebu] 15 mcg IH Q12HRT #30 ml 04/05/16 Unknown Rx Benzonatate [Tessalon Perles] 100 mg PO Q8HR PRN #15 capsule 04/05/16 Unknown Rx Budesoni/Formotero 160-4.5(Nf) 2 puff IH BID #1 inha 04/05/16 Unknown Rx [Symbicort 160-4.5 (Nf)] Ipratropium/Albuterol Sulfate 1 ampul IH BIDRT #30 ampul.neb 04/05/16 Unknown Rx [DUONEB *Not for PRN Use*] Prednisone [predniSONE 10 mg 10 mg PO .TAPER #52 tab 04/05/16 Unknown Rx (6-Day Pack, 21 Tabs)] guaiFENesin [Robitussin] 200 mg PO Q4H PRN #30 oral.liqd 04/05/16 Unknown Rx Azithromycin [Zithromax Z-SAMIRA] 0 mg PO DAILY #6 tab 06/15/16 Unknown Rx HYDROcodone/APAP 5-325 [[place] 1 each PO Q6HR PRN #10 tablet 06/15/16 Unknown Rx 5/325] Promethazine [Phenergan TAB] 25 mg PO Q6HR PRN #10 tab 06/15/16 Unknown Rx HYDROcodone/HOMATROP 5-1.5 5 ml PO Q4HR PRN #150 ml 06/17/16 Unknown Rx [HYDROcodone-Homatropin 5-1.5 mg per 5 ML] Prednisone [predniSONE 10 mg 10 mg PO .TAPER #1 tab.ds.pk 06/17/16 Unknown Rx (6-Day Pack, 21 Tabs)] Pantoprazole [Protonix TAB] 20 mg PO QDAY #30 tablet. 06/18/16 Unknown Rx Bacitracin/Polymixin B [Polysporin] 1 applic TP BID #1 tube 09/05/16 Unknown Rx Cetirizine HCl [ZyrTEC] 10 mg PO QAM #5 capsule 09/05/16 Unknown Rx Sulfamethoxazole/Trimethoprim 1 each PO BID #20 tablet 09/05/16 Unknown Rx [Bactrim DS TAB] predniSONE [Deltasone] 20 mg PO QDAY #3 tab 09/05/16 Unknown Rx traMADol [Ultram] 50 mg PO Q6HR PRN #20 tablet 09/05/16 Unknown Rx Azithromycin [Zithromax Z-SAMIRA] 250 mg PO QDAY #6 tablet 11/02/16 Unknown Rx Phenylephrine/Dm/Acetaminop/GG 20 ml PO Q4HR PRN #180 liquid 11/02/16 Unknown Rx [Mucinex Wfql-Zws-Nmvczkwkmn Lq] predniSONE [Deltasone] 20 mg PO QDAY #5 tab 11/02/16 Unknown Rx ALBUTEROL Inhaler [ProAir HFA 2 puff IH QID PRN #1 inhalation 11/17/16 Unknown Rx Inhaler] ALBUTEROL NEB's [Proventil 0.083% 2.5 mg IH Q2H PRN #30 nebu 11/17/16 Unknown Rx NEBS] predniSONE [Deltasone] 20 mg PO BID #10 tab 11/17/16 Unknown Rx ED Physical Exam - General Limitations: No Limitations General appearance: alert - Head Head exam: Present: atraumatic, normocephalic - Eye Eye exam: Present: normal appearance, PERRL, EOMI - ENT ENT exam: Present: mucous membranes moist - Neck Neck exam: Present: normal inspection - Respiratory Respiratory exam: Present: wheezes - Cardiovascular Cardiovascular Exam: Present: regular rate, normal rhythm. Absent: systolic murmur, diastolic murmur, rubs, gallop - GI/Abdominal GI/Abdominal exam: Present: soft, normal bowel sounds - Extremities Exam Extremities exam: Present: normal inspection - Back Exam Back exam: Present: normal inspection - Neurological Exam Neurological exam: Present: alert, oriented X3 - Psychiatric Psychiatric exam: Present: normal affect, normal mood - Skin Skin exam: Present: warm, dry, intact, normal color. Absent: rash ED Course Vital Signs 11/17/16 11/17/16 11/17/16 15:19 20:03 21:10 Temperature 98.6 F Pulse Rate 102 H 76 Pulse Rate [ 68 Anterior Bilateral Throughout] Respiratory 20 16 Rate Respiratory 18 Rate [Anterior Bilateral Throughout] Blood Pressure 189/109 Blood Pressure 145/85 [Left] O2 Sat by Pulse 100 97 Oximetry 11/17/16 21:48 Temperature Pulse Rate Pulse Rate [ 72 Anterior Bilateral Throughout] Respiratory Rate Respiratory 18 Rate [Anterior Bilateral Throughout] Blood Pressure Blood Pressure [Left] O2 Sat by Pulse Oximetry - Reevaluation(s) Reevaluation #1: 11/17/16 22:06 Patient states that she is feeling better no wheezing on secondary exam. Discussed plan with patient to send patient home she resides plan we'll send with steroids and albuterol. Reevaluation #2: 11/17/16 22:07 Discussed return precautions to come back to the ED additional verbal discharge instructions were given. ED Medical Decision Making - Lab Data Result diagrams: 11/17/16 15:32 11/17/16 15:32 Laboratory Results - last 24 hr 11/17/16 11/17/16 15:32 15:32 WBC 4.7 RBC 4.58 Hgb 12.6 Hct 38.6 MCV 84 MCH 28 MCHC 33 RDW 16.1 H Plt Count 285 Lymph % (Auto) 27.2 [place] % (Auto) 7.1 Eos % (Auto) 4.8 H Baso % (Auto) 0.6 Lymph # 1.3 [place] # 0.3 Eos # 0.2 Baso # 0.0 Seg Neutrophils % 60.3 Seg Neutrophils # 2.8 Sodium 145 Potassium 4.4 Chloride 102.8 Carbon Dioxide 25 Anion Gap 22 BUN 10 Creatinine 0.6 L Estimated GFR > 60 BUN/Creatinine Ratio 16.66 Glucose 118 H Calcium 9.5 Troponin T < 0.010 - EKG Data 11/17/16 20:49 EKG shows normal sinus rhythm possible left atrial enlargement no ST segment elevation - Radiology Data Chest x-ray shows no acute pulmonary disease no cardiomegaly - Medical Decision Making Chief medical diagnosis: Asthma exacerbation Differential medical diagnosis: COPD, pneumonia, bronchitis, anxiety Will get CBC, CMP, troponin, EKG, chest x-ray, albuterol, ipratropium and steroids We'll reassess patient after steroids and breathing treatment to see if her shortness of breath has improved. Critical care attestation.: If time is entered above; I have spent that time in minutes in the direct care of this critically ill patient, excluding procedure time. ED Disposition Clinical Impression: Shortness of breath, Anxiety Acute asthma exacerbation Qualifiers: Asthma severity: moderate persistent Qualified Code(s): J45.41 - Moderate persistent asthma with (acute) exacerbation Disposition: TO HOME OR SELFCARE Is pt being admited?: No Does the pt Need Aspirin: No Condition: Stable Instructions: Asthma (ED) Prescriptions: ALBUTEROL Inhaler [ProAir HFA Inhaler] 2 puff IH QID PRN #1 inhalation PRN Reason: Shortness Of Breath ALBUTEROL NEB's [Proventil 0.083% NEBS] 2.5 mg IH Q2H PRN #30 nebu PRN Reason: wheezing predniSONE [Deltasone] 20 mg PO BID #10 tab Referrals: PRIMARY CARE, [Primary Care Provider] - 3-5 Days Time of Disposition: 22:07
[2016-11-17 20:04] VITALS: BP 145/85
--- NOTE | 2016-11-18 08:18 | XRay Report ---
CHEST 2 VIEWS INDICATION: Shortness of breath. COMPARISON: 11/02/2016 FINDINGS: PA and lateral chest radiographs demonstrate mild increased horizontal left basilar atelectasis. Clear remainder lungs without pleural effusions or CHF. Stable cardiomediastinal silhouette and demineralized bones with multilevel thoracic spondylosis. CONCLUSION: Mild increased left basilar atelectasis, as described. Thank you for the opportunity to participate in this patient's care.
== END 2016-11-17 22:23 | disposition home or self-care (01) ==
LOC: ED 15:08
DX: J45.41 Moderate persistent asthma with (acute) exacerbation (principal); R06.02 Shortness of breath; F41.9 Anxiety disorder, unspecified; I10 Essential (primary) hypertension; Z88.0 Allergy status to penicillin
CPT/HCPCS: 36415; 71020; 80048; 84484; 85025; 93005; 93010; 94640; 99284; J7512

== ENCOUNTER 2017-01-03 18:09 | Emergency (ER) | payer OTHER ==
[2017-01-03 19:59] VITALS: BP 142/96
[2017-01-03 20:27] LABS: Hematocrit 37.8 % (30.3-42.9); Hemoglobin 12.5 gm/dl (10.1-14.3); Mean Corpuscular HGB Conc 33 % (30-34); Mean Corpuscular Hemoglobin 28 pg (28-32); Mean Corpuscular Volume 85 fl (79-97); Platelet Count 290 K/mm3 (140-440); Red Blood Count 4.45 M/mm3 (3.65-5.03); Red Cell Distribution Width 15.9 % (13.2-15.2); White Blood Count 7.5 K/mm3 (4.5-11.0)
[2017-01-03 20:45] LABS: Anion Gap 18 mmol/L; Blood Urea Nitrogen 10 mg/dL (7-17); Calcium 9.1 mg/dL (8.4-10.2); Carbon Dioxide 27 mmol/L (22-30); Chloride 102.5 mmol/L (98-107); Glucose 88 mg/dL (65-100); Sodium 143 mmol/L (137-145)
[2017-01-03 21:05] LABS: Basophils % (Manual) 0 % (0.0-1.8); Blastocytes % (Manual) 0 %
[2017-01-03 21:06] LABS: Anisocytosis Few; Diff Status Complete; Poikilocytosis Few
--- NOTE | 2017-01-04 07:29 | XRay Report ---
ROUTINE CHEST, TWO VIEWS: HISTORY: Shortness of breath. The trachea, heart, mediastinal contour, lung murphy and bony thorax are unremarkable. Left basilar atelectasis has resolved since 11/17/16. IMPRESSION: Unremarkable chest x-ray.
== END 2017-01-04 03:03 | disposition left against medical advice (07) ==
LOC: ED 18:09
DX: M54.9 Dorsalgia, unspecified (principal); R05 Cough; Z53.21 Procedure and treatment not carried out due to patient leaving prior to being seen by health care provider
CPT/HCPCS: 36415; 71020; 80048; 85007; 85025; 93005; 93010

== ENCOUNTER 2017-03-17 18:19 | Emergency (ER) | payer OTHER ==
[2017-03-17 19:23] LABS: Hematocrit 40.6 % (30.3-42.9); Hemoglobin 12.9 gm/dl (10.1-14.3); Mean Corpuscular HGB Conc 32 % (30-34); Mean Corpuscular Hemoglobin 28 pg (28-32); Mean Corpuscular Volume 87 fl (79-97); Platelet Count 325 K/mm3 (140-440); Red Blood Count 4.67 M/mm3 (3.65-5.03); Red Cell Distribution Width 15.6 % (13.2-15.2); White Blood Count 11.6 K/mm3 (4.5-11.0)
[2017-03-17 19:30] LABS: Anion Gap 21 mmol/L; BUN/Creatinine Ratio 21; Blood Urea Nitrogen 15 mg/dL (7-17); Calcium 9.2 mg/dL (8.4-10.2); Carbon Dioxide 26 mmol/L (22-30); Chloride 100.5 mmol/L (98-107); Glucose 103 mg/dL (65-100); Potassium 4.1 mmol/L (3.6-5.0); Sodium 143 mmol/L (137-145)
[2017-03-17 20:56] LABS: Bacteria,Urine 1+ /HPF (Negative); Bilirubin,Urine NEG (Negative); Blood,Urine NEG (Negative); Ketones,Urine NEG (Negative); Leukocyte Esterase,Urine NEG (Negative); Nitrite,Urine NEG (Negative); Protein,Urine <15 mg/dL mg/dL (Negative); Urobilinogen,Urine < 2.0 mg/dL (<2.0)
--- NOTE | 2017-03-17 21:30 | XRay Report ---
FINAL REPORT EXAM: XR CHEST ROUTINE 2V HISTORY: cough,sob,wheezing TECHNIQUE: Two view chest PA and lateral PRIORS: Comparison is dated June 15, 2016 FINDINGS: Cardiac and mediastinal contours are unremarkable. There is focal subsegmental atelectasis within the right lower lobe no pleural fluid collection seen. Pulmonary vasculature is unremarkable. IMPRESSION: Subsegmental atelectasis within the right lower lobe
[2017-03-17] MEDS ORDERED: DUONEB *Not for PRN Use IH ONE (23:34)
[2017-03-18] MEDS ORDERED: DELTASONE PO ONE (06:44)
[2017-03-18] MEDS ORDERED: TESSALON PERLES PO ONE (06:44)
[2017-03-18] MEDS ORDERED: LEVAQUIN PO ONE (06:44)
[2017-03-18] MEDS ORDERED: MUCINEX ER PO ONE (06:45)
[2017-03-18] MEDS ORDERED: DUONEB *Not for PRN Use IH ONE (07:45)
--- NOTE | 2017-03-18 08:07 | Emergency Department Report ---
HPI - General Chief Complaint: Upper Respiratory Infection Time Seen by Provider: 03/18/17 06:05 - HPI HPI: Patient is a 56-year-old female presents for evaluation of cough and dyspnea, with a history of asthma. The patient reports coughing for the past 2 weeks, productive of clear and yellow sputum, mild, and associated with dyspnea. She reports dyspnea for the past 2-3 days, moderate severity, worse with exertion, improved at rest and with breathing treatments, consistent with previous asthma exacerbations per the patient. The patient denies trauma to the chest, fever, chills, night sweats, weakness, chest pain, syncope, hemoptysis, unilateral leg swelling, HRT use, recent immobilization, history of DVT or PE, recent cancer. ED Past Medical Hx - Past Medical History Hx Hypertension: Yes Hx Asthma: Yes Additional medical history: allergies, normal coronaries,chronic sinus infections - Surgical History Additional Surgical History: brain tumor removed,HYSTERECTOMY - Social History Smoking Status: Never Smoker Substance Use Type: None - Medications Home Medications: Home Medications Medication Instructions Recorded Confirmed Last Taken Type Carvedilol [Coreg] 3.125 mg PO BID #60 tablet 07/18/15 03/17/17 01/08/16 Rx Budesoni/Formotero 160-4.5(Nf) 2 puff IH BID #1 inha 04/05/16 03/17/17 Unknown Rx [Symbicort 160-4.5 (Nf)] guaiFENesin [Robitussin] 200 mg PO Q4H PRN #30 oral.liqd 04/05/16 03/17/17 Unknown Rx ALBUTEROL Inhaler [ProAir HFA 2 puff IH QID PRN #1 inhalation 11/17/16 03/17/17 Unknown Rx Inhaler] Loratadine [Claritin] 10 mg PO DAILY 03/17/17 03/17/17 Unknown History Losartan/Hydrochlorothiazide 1 tab PO QDAY 03/17/17 03/17/17 Unknown History [Hyzaar 50-12.5 TAB] ALBUTEROL Inhaler [ProAir HFA 2 puff IH QID PRN #1 inhalation 03/18/17 Unknown Rx Inhaler] Levofloxacin [Levaquin TAB] 500 mg PO QDAY #10 tablet 03/18/17 Unknown Rx Phenylephrine/Dm/Acetaminop/GG 20 ml PO Q4HR PRN #180 liquid 03/18/17 Unknown Rx [Mucinex Vsux-Mgw-Pibzcmkvdw Lq] Prednisone [predniSONE 10 mg 10 mg PO .TAPER #1 tab.ds.pk 03/18/17 Unknown Rx (6-Day Pack, 21 Tabs)] ED Review of Systems ROS: Stated complaint: COUGHING ,WHEEZING Other details as noted in HPI Constitutional: denies: fever ENT: denies: throat or neck pain Respiratory: reports: cough, shortness of breath Cardiovascular: denies: chest pain Endocrine: denies unexplained weight loss or gain Gastrointestinal: denies: abdominal pain, nausea Genitourinary: denies: dysuria Musculoskeletal: denies: leg swelling Skin: denies: rash Neurological: denies: headache Hematological/Lymphatic: denies: easy bleeding or easy bruising Psych: denies sadness or hopelessness Physical Exam - Physical Exam Vital Signs: Vital Signs 03/17/17 03/18/17 03/18/17 18:39 00:02 01:54 Temperature 98.7 F Pulse Rate 87 70 Pulse Rate [ 90 Posterior Left] Respiratory 20 13 Rate Respiratory 18 Rate [Posterior Left] Blood Pressure 143/100 Blood Pressure [Left] O2 Sat by Pulse 92 Oximetry 03/18/17 03/18/17 03/18/17 02:01 02:05 02:15 Temperature 98.1 F Pulse Rate 65 63 57 L Pulse Rate [ Posterior Left] Respiratory 13 16 17 Rate Respiratory Rate [Posterior Left] Blood Pressure 123/80 137/84 Blood Pressure 123/80 [Left] O2 Sat by Pulse 96 93 98 Oximetry 03/18/17 03/18/17 03/18/17 02:30 02:31 02:45 Temperature Pulse Rate 81 60 Pulse Rate [ Posterior Left] Respiratory 16 23 19 Rate Respiratory Rate [Posterior Left] Blood Pressure 137/84 137/84 Blood Pressure [Left] O2 Sat by Pulse 93 99 100 Oximetry 03/18/17 03/18/17 03/18/17 03:00 03:15 03:31 Temperature Pulse Rate 58 L 57 L 60 Pulse Rate [ Posterior Left] Respiratory 16 17 17 Rate Respiratory Rate [Posterior Left] Blood Pressure 125/73 137/84 137/84 Blood Pressure [Left] O2 Sat by Pulse 100 99 99 Oximetry 03/18/17 03/18/17 03/18/17 03:45 04:01 04:15 Temperature Pulse Rate 57 L 57 L 58 L Pulse Rate [ Posterior Left] Respiratory 16 16 15 Rate Respiratory Rate [Posterior Left] Blood Pressure 137/84 115/62 115/62 Blood Pressure [Left] O2 Sat by Pulse 99 98 97 Oximetry 03/18/17 03/18/17 03/18/17 04:31 04:45 05:00 Temperature Pulse Rate 57 L 58 L 70 Pulse Rate [ Posterior Left] Respiratory 15 16 11 L Rate Respiratory Rate [Posterior Left] Blood Pressure 115/62 115/62 125/71 Blood Pressure [Left] O2 Sat by Pulse 96 97 98 Oximetry 03/18/17 03/18/17 03/18/17 05:15 05:31 05:45 Temperature Pulse Rate 59 L 64 60 Pulse Rate [ Posterior Left] Respiratory 16 17 18 Rate Respiratory Rate [Posterior Left] Blood Pressure 125/71 125/71 125/71 Blood Pressure [Left] O2 Sat by Pulse 96 98 98 Oximetry 03/18/17 03/18/17 03/18/17 06:00 06:15 06:31 Temperature Pulse Rate 72 58 L 59 L Pulse Rate [ Posterior Left] Respiratory 23 16 16 Rate Respiratory Rate [Posterior Left] Blood Pressure 136/67 136/67 136/67 Blood Pressure [Left] O2 Sat by Pulse 96 98 99 Oximetry 03/18/17 03/18/17 03/18/17 06:45 07:00 07:15 Temperature Pulse Rate 69 Pulse Rate [ Posterior Left] Respiratory 22 Rate Respiratory Rate [Posterior Left] Blood Pressure 136/67 136/67 136/67 Blood Pressure [Left] O2 Sat by Pulse 97 92 Oximetry 03/18/17 03/18/17 07:49 07:58 Temperature Pulse Rate Pulse Rate [ 75 78 Posterior Left] Respiratory Rate Respiratory 20 20 Rate [Posterior Left] Blood Pressure Blood Pressure [Left] O2 Sat by Pulse Oximetry Physical Exam: General: well-nourished, well-developed, no acute distress Head: Normocephalic, atraumatic Eyes: normal sclera ENT: Mucous membranes are pink and moist bilateral nasal congestion present Neck: trachea midline, neck supple, No neck stiffness, no cervical adenopathy Respiratory: Diminished breath sounds and expiratory wheezing present throughout lung murphy bilaterally, no costal retractions, no respiratory distress Cardio: S1 and S2 present, no murmurs, rubs, gallops, capillary refill is brisk Abdomen: Normoactive bowel sounds, soft abdomen, no rigidity, no guarding or rebound tenderness Musc: No pitting edema Skin: No rash Neuro: no facial drooping, normal speech Psych: Normal affect ED Course Vital Signs 03/17/17 03/18/17 03/18/17 18:39 00:02 01:54 Temperature 98.7 F Pulse Rate 87 70 Pulse Rate [ 90 Posterior Left] Respiratory 20 13 Rate Respiratory 18 Rate [Posterior Left] Blood Pressure 143/100 Blood Pressure [Left] O2 Sat by Pulse 92 Oximetry 03/18/17 03/18/17 03/18/17 02:01 02:05 02:15 Temperature 98.1 F Pulse Rate 65 63 57 L Pulse Rate [ Posterior Left] Respiratory 13 16 17 Rate Respiratory Rate [Posterior Left] Blood Pressure 123/80 137/84 Blood Pressure 123/80 [Left] O2 Sat by Pulse 96 93 98 Oximetry 03/18/17 03/18/17 03/18/17 02:30 02:31 02:45 Temperature Pulse Rate 81 60 Pulse Rate [ Posterior Left] Respiratory 16 23 19 Rate Respiratory Rate [Posterior Left] Blood Pressure 137/84 137/84 Blood Pressure [Left] O2 Sat by Pulse 93 99 100 Oximetry 03/18/17 03/18/17 03/18/17 03:00 03:15 03:31 Temperature Pulse Rate 58 L 57 L 60 Pulse Rate [ Posterior Left] Respiratory 16 17 17 Rate Respiratory Rate [Posterior Left] Blood Pressure 125/73 137/84 137/84 Blood Pressure [Left] O2 Sat by Pulse 100 99 99 Oximetry 03/18/17 03/18/17 03/18/17 03:45 04:01 04:15 Temperature Pulse Rate 57 L 57 L 58 L Pulse Rate [ Posterior Left] Respiratory 16 16 15 Rate Respiratory Rate [Posterior Left] Blood Pressure 137/84 115/62 115/62 Blood Pressure [Left] O2 Sat by Pulse 99 98 97 Oximetry 03/18/17 03/18/17 03/18/17 04:31 04:45 05:00 Temperature Pulse Rate 57 L 58 L 70 Pulse Rate [ Posterior Left] Respiratory 15 16 11 L Rate Respiratory Rate [Posterior Left] Blood Pressure 115/62 115/62 125/71 Blood Pressure [Left] O2 Sat by Pulse 96 97 98 Oximetry 03/18/17 03/18/17 03/18/17 05:15 05:31 05:45 Temperature Pulse Rate 59 L 64 60 Pulse Rate [ Posterior Left] Respiratory 16 17 18 Rate Respiratory Rate [Posterior Left] Blood Pressure 125/71 125/71 125/71 Blood Pressure [Left] O2 Sat by Pulse 96 98 98 Oximetry 03/18/17 03/18/17 03/18/17 06:00 06:15 06:31 Temperature Pulse Rate 72 58 L 59 L Pulse Rate [ Posterior Left] Respiratory 23 16 16 Rate Respiratory Rate [Posterior Left] Blood Pressure 136/67 136/67 136/67 Blood Pressure [Left] O2 Sat by Pulse 96 98 99 Oximetry 03/18/17 03/18/17 03/18/17 06:45 07:00 07:15 Temperature Pulse Rate 69 Pulse Rate [ Posterior Left] Respiratory 22 Rate Respiratory Rate [Posterior Left] Blood Pressure 136/67 136/67 136/67 Blood Pressure [Left] O2 Sat by Pulse 97 92 Oximetry 03/18/17 03/18/17 07:49 07:58 Temperature Pulse Rate Pulse Rate [ 75 78 Posterior Left] Respiratory Rate Respiratory 20 20 Rate [Posterior Left] Blood Pressure Blood Pressure [Left] O2 Sat by Pulse Oximetry ED Medical Decision Making - Lab Data Result diagrams: 03/17/17 18:56 03/17/17 18:56 - Medical Decision Making The patient was seen and examined by myself. The patient is placed on a electronic news gathering editor and continuous pulse ox. On initial evaluation, the patient was found to be in no distress. Evaluation orders were placed. EKG was negative for findings suggestive of acute cardiac infarct. The patient is given Tessalon Perles for their cough and Mucinex for nasal congestion. She is given a DuoNeb breathing treatment and by mouth prednisone for treatment of her asthma exacerbation. Lab results were not concerning. Chest x-ray exhibits right lower lobe subsegmental atelectasis and was negative for focal lobar consolidation, pleural effusion, pneumothorax, pulmonary vascular congestion, or other acute emergent disease process. The patient was reevaluated and reported that their symptoms were markedly improved. On reexamination the patient is found to have normal respiratory rate and O2 sat on pulse oximetry, with no costal retractions or diminishment of breath sounds on auscultation. The patient is stable for discharge with outpatient follow-up. The patient is given follow-up and return instructions. The patient expressed understanding and agreed with the plan. The patient is discharged in stable condition. Critical care attestation.: If time is entered above; I have spent that time in minutes in the direct care of this critically ill patient, excluding procedure time. ED Disposition Clinical Impression: Bronchitis with asthma, acute Acute asthma exacerbation Qualifiers: Asthma severity: mild Asthma persistence: intermittent Qualified Code(s): J45.21 - Mild intermittent asthma with (acute) exacerbation Disposition: TO HOME OR SELFCARE Is pt being admited?: No Does the pt Need Aspirin: No Condition: Stable Instructions: Chronic Bronchitis (ED), Acute Bronchitis (ED), Asthma (ED) Prescriptions: ALBUTEROL Inhaler [ProAir HFA Inhaler] 2 puff IH QID PRN #1 inhalation PRN Reason: Shortness Of Breath Levofloxacin [Levaquin TAB] 500 mg PO QDAY #10 tablet Phenylephrine/Dm/Acetaminop/GG [Mucinex Jbrm-Nkw-Hvfimbrisk Lq] 20 ml PO Q4HR PRN #180 liquid PRN Reason: cough and sore throat Prednisone [predniSONE 10 mg (6-Day Pack, 21 Tabs)] 10 mg PO .TAPER #1 tab.ds.pk Referrals: PRIMARY CARE, [Primary Care Provider] - 3-5 Days [facility] [Outside] - 3-5 Days Time of Disposition: 08:03
[2017-03-18 09:11] VITALS: BP 127/81
== END 2017-03-18 09:05 | disposition home or self-care (01) ==
LOC: ED 18:19
DX: J45.21 Mild intermittent asthma with (acute) exacerbation (principal); I10 Essential (primary) hypertension
CPT/HCPCS: 36415; 71020; 80048; 81001; 85027; 94640; 99284; J7512

== ENCOUNTER 2017-07-16 14:37 | Emergency (ER) | payer OTHER ==
[2017-07-16 15:03] VITALS: BP 145/92
[2017-07-16] MEDS ORDERED: MOTRIN PO ONE (15:06)
[2017-07-16] MEDS ORDERED: TESSALON PERLES PO ONE (15:06)
--- NOTE | 2017-07-16 16:47 | XRay Report ---
FINAL REPORT EXAM: XR CHEST ROUTINE 2V HISTORY: cough TECHNIQUE: PA and lateral views of the chest PRIORS: CXR 03/17/2017 FINDINGS: Lines, tubes, and devices: N/A Lungs and pleura: Trachea is normal in position. Linear atelectasis in the lingula is noted. Lungs are otherwise clear of infiltrate, pleural effusion, vascular congestion, or pneumothorax. No other change. Cardiomediastinal silhouette: Cardiac and mediastinal silhouettes are unremarkable. Tortuosity of the aorta is again noted. Other: Bony structures are intact. IMPRESSION: Linear atelectasis in the lingula.
--- NOTE | 2017-07-16 17:20 | Emergency Department Report ---
- General Chief Complaint: Upper Respiratory Infection Stated Complaint: COUGH Time Seen by Provider: 07/16/17 16:20 Source: patient Mode of arrival: Ambulatory Limitations: No Limitations - History of Present Illness Initial Comments: This is a 57-year-old female nontoxic, well nourished in appearance, no acute signs of distress presents to the ED with c/o of productive cough, rhinorrhea, nasal congestion x2 week. Patient describes productive cough as yellow mucus production. Patient denies any sick contact. Patient denies any recent travels , long car, recent hospital stays. Patient denies any calf pain or calf tenderness. Patient denies any chest pain, short of breath, fever, chills, nausea, vomiting, hemoptysis, numbness, tingling, headache or stiff neck. Patient states allergies to PCN. Past medical history includes hypertension and asthma. MD Complaint: cough, rhinorrhea, nasal congestion -: week(s) (2) Severity: mild Severity scale (0 -10): 8 Quality: aching Consistency: constant Improves With: nothing Worsens With: nothing Associated Symptoms: rhinorrhea, nasal congestion, cough. denies: fever, chills , myalgias, diaphoresis, headache, sore throat, stiff neck, chest pain, shortness of breath, abdominal pain, nausea, vomiting, diarrhea, dysuria, rash, confusion, right sweats, weight loss, epistaxis, hoarseness, ear pain Treatments Prior to Arrival: none - Related Data Home Medications Medication Instructions Recorded Confirmed Last Taken Loratadine [Claritin] 10 mg PO DAILY 03/17/17 03/17/17 Unknown Losartan/Hydrochlorothiazide 1 tab PO QDAY 03/17/17 03/17/17 Unknown [Hyzaar 50-12.5 TAB] Previous Rx's Medication Instructions Recorded Last Taken Type Carvedilol [Coreg] 3.125 mg PO BID #60 tablet 07/18/15 01/08/16 Rx Budesoni/Formotero 160-4.5(Nf) 2 puff IH BID #1 inha 04/05/16 Unknown Rx [Symbicort 160-4.5 (Nf)] guaiFENesin [Robitussin] 200 mg PO Q4H PRN #30 oral.liqd 04/05/16 Unknown Rx ALBUTEROL Inhaler [ProAir HFA 2 puff IH QID PRN #1 inhalation 11/17/16 Unknown Rx Inhaler] ALBUTEROL Inhaler [ProAir HFA 2 puff IH QID PRN #1 inhalation 03/18/17 Unknown Rx Inhaler] Levofloxacin [Levaquin TAB] 500 mg PO QDAY #10 tablet 03/18/17 Unknown Rx Phenylephrine/Dm/Acetaminop/GG 20 ml PO Q4HR PRN #180 liquid 03/18/17 Unknown Rx [Mucinex Shsw-Cmw-Bupmocelua Lq] Prednisone [predniSONE 10 mg 10 mg PO .TAPER #1 tab.ds.pk 03/18/17 Unknown Rx (6-Day Pack, 21 Tabs)] Azithromycin [Zithromax Z-SAMIRA] 250 mg PO DAILY #6 tablet 07/16/17 Unknown Rx Benzonatate [Tessalon Perle] 100 mg PO Q8H PRN #20 capsule 07/16/17 Unknown Rx Ibuprofen [Motrin] 600 mg PO Q8H PRN #30 tablet 07/16/17 Unknown Rx Loratadine [Claritin] 10 mg PO DAILY #30 tablet 07/16/17 Unknown Rx Allergies Allergy/AdvReac Type Severity Reaction Status Date / Time Penicillins Allergy Rash Verified 05/30/15 13:40 ED Review of Systems ROS: Stated complaint: COUGH Other details as noted in HPI Constitutional: denies: chills, fever Eyes: denies: eye pain, eye discharge, vision change ENT: denies: ear pain, throat pain Respiratory: cough. denies: shortness of breath, wheezing Cardiovascular: denies: chest pain, palpitations Endocrine: no symptoms reported Gastrointestinal: denies: abdominal pain, nausea, diarrhea Genitourinary: denies: urgency, dysuria, discharge Musculoskeletal: denies: back pain, joint swelling, arthralgia Skin: denies: rash, lesions Neurological: denies: headache, weakness, paresthesias Psychiatric: denies: anxiety, depression Hematological/Lymphatic: denies: easy bleeding, easy bruising ED Past Medical Hx - Past Medical History Previous Medical History?: Yes Hx Hypertension: Yes Hx Asthma: Yes Additional medical history: allergies, normal coronaries,chronic sinus infections - Surgical History Past Surgical History?: Yes Additional Surgical History: brain tumor removed,HYSTERECTOMY - Social History Smoking Status: Never Smoker Substance Use Type: None - Medications Home Medications: Home Medications Medication Instructions Recorded Confirmed Last Taken Type Carvedilol [Coreg] 3.125 mg PO BID #60 tablet 07/18/15 03/17/17 01/08/16 Rx Budesoni/Formotero 160-4.5(Nf) 2 puff IH BID #1 inha 04/05/16 03/17/17 Unknown Rx [Symbicort 160-4.5 (Nf)] guaiFENesin [Robitussin] 200 mg PO Q4H PRN #30 oral.liqd 04/05/16 03/17/17 Unknown Rx ALBUTEROL Inhaler [ProAir HFA 2 puff IH QID PRN #1 inhalation 11/17/16 03/17/17 Unknown Rx Inhaler] Loratadine [Claritin] 10 mg PO DAILY 03/17/17 03/17/17 Unknown History Losartan/Hydrochlorothiazide 1 tab PO QDAY 03/17/17 03/17/17 Unknown History [Hyzaar 50-12.5 TAB] ALBUTEROL Inhaler [ProAir HFA 2 puff IH QID PRN #1 inhalation 03/18/17 Unknown Rx Inhaler] Levofloxacin [Levaquin TAB] 500 mg PO QDAY #10 tablet 03/18/17 Unknown Rx Phenylephrine/Dm/Acetaminop/GG 20 ml PO Q4HR PRN #180 liquid 03/18/17 Unknown Rx [Mucinex Poql-Bad-Sknzqzmaxu Lq] Prednisone [predniSONE 10 mg 10 mg PO .TAPER #1 tab.ds.pk 03/18/17 Unknown Rx (6-Day Pack, 21 Tabs)] Azithromycin [Zithromax Z-SAMIRA] 250 mg PO DAILY #6 tablet 07/16/17 Unknown Rx Benzonatate [Tessalon Perle] 100 mg PO Q8H PRN #20 capsule 07/16/17 Unknown Rx Ibuprofen [Motrin] 600 mg PO Q8H PRN #30 tablet 07/16/17 Unknown Rx Loratadine [Claritin] 10 mg PO DAILY #30 tablet 07/16/17 Unknown Rx ED Physical Exam - General Limitations: No Limitations General appearance: alert, in no apparent distress - Head Head exam: Present: atraumatic, normocephalic - Eye Eye exam: Present: normal appearance Pupils: Present: normal accommodation - ENT ENT exam: Present: normal exam, normal orophraynx, mucous membranes moist, TM's normal bilaterally, normal external ear exam - Neck Neck exam: Present: normal inspection, full ROM. Absent: tenderness, meningismus, lymphadenopathy - Respiratory Respiratory exam: Present: normal lung sounds bilaterally. Absent: respiratory distress, wheezes, rales, rhonchi, stridor, chest wall tenderness, accessory muscle use, decreased breath sounds, prolonged expiratory - Cardiovascular Cardiovascular Exam: Present: regular rate, normal rhythm, normal heart sounds. Absent: bradycardia, tachycardia, irregular rhythm, systolic murmur, diastolic murmur, rubs, gallop - GI/Abdominal GI/Abdominal exam: Present: soft, normal bowel sounds - Extremities Exam Extremities exam: Present: normal inspection, full ROM, normal capillary refill - Back Exam Back exam: Present: normal inspection, full ROM - Neurological Exam Neurological exam: Present: alert, oriented X3, normal gait - Psychiatric Psychiatric exam: Present: normal affect, normal mood - Skin Skin exam: Present: warm, dry, intact, normal color. Absent: rash ED Course Vital Signs 07/16/17 14:58 Temperature 98.2 F Pulse Rate 75 Blood Pressure 145/92 O2 Sat by Pulse 95 Oximetry - Reevaluation(s) Reevaluation #1: 07/16/17 17:18 Patient is speaking in full sentences with no signs of distress noted. ED Medical Decision Making - Medical Decision Making This is a 57-year-old female that presents with upper respiratory infection. Patient is stable and was examined by me. Chest x-ray has been obtained and dictated by radiologist with normal exam. Patient is notified of x-ray results with no questions noted. Due to patient having symptoms of upper respiratory infection and worsening I will treat patient empirically with zpak. Patient is above the >72 hour window for tamiflu in influenza is present. Patient was instructed to increase hydration, rest and take Motrin for fever episodes. Patient received motrin and tesslone perrls in the ED. Vitals stable. Patient is nonfebrile and normal heart rate. Patient was orally hydrated and patient tolerated well known nausea or vomiting. Patient was instructed Follow-up with a primary care doctor in 3-5 days or if symptoms worsen and continue return to emergency room as soon as possible. At time time of discharge, the patient does not seem toxic or ill in appearance. No acute signs of distress noted. Patient agrees to discharge treatment plan of care. No further questions noted by the patient. Critical care attestation.: If time is entered above; I have spent that time in minutes in the direct care of this critically ill patient, excluding procedure time. ED Disposition Clinical Impression: Upper respiratory infection Qualifiers: URI type: unspecified URI Qualified Code(s): J06.9 - Acute upper respiratory infection, unspecified Disposition: TO HOME OR SELFCARE Is pt being admited?: No Does the pt Need Aspirin: No Condition: Stable Instructions: Upper Respiratory Infection (ED) Additional Instructions: Follow-up with a primary care doctor in 3-5 days or if symptoms worsen and continue return to emergency room as soon as possible. Prescriptions: Azithromycin [Zithromax Z-SAMIRA] 250 mg PO DAILY #6 tablet Benzonatate [Tessalon Perle] 100 mg PO Q8H PRN #20 capsule PRN Reason: Cough Ibuprofen [Motrin] 600 mg PO Q8H PRN #30 tablet PRN Reason: Pain Loratadine [Claritin] 10 mg PO DAILY #30 tablet Referrals: PRIMARY CAREMD [Primary Care Provider] - 3-5 Days DELIO BLUNT MD [Staff Physician] - 3-5 Days [facility] [Outside] - 3-5 Days [facility] [Outside] - 3-5 Days Forms: Work/School Release Form(ED)
== END 2017-07-16 17:22 | disposition home or self-care (01) ==
LOC: ED 14:37
DX: J06.9 Acute upper respiratory infection, unspecified (principal); I10 Essential (primary) hypertension; Z88.0 Allergy status to penicillin
CPT/HCPCS: 71046; 99283

== ENCOUNTER 2018-04-22 14:04 | Emergency (ER) | payer OTHER ==
[2018-04-22 14:14] VITALS: BP 158/84
[2018-04-22] MEDS ORDERED: TYLENOL PO ONE (14:14)
--- NOTE | 2018-04-22 16:44 | XRay Report ---
FINAL REPORT EXAM: XR CHEST ROUTINE 2V HISTORY: cough, fever COMPARISON: Chest radiograph performed on 07/16/2017 TECHNIQUE: Frontal and lateral views of the chest FINDINGS: The cardiomediastinal silhouette is normal in appearance. There is streaky atelectasis versus scarring in the left midlung, similar to the previous study. No p leural effusion or pneumothorax. No acute bony or soft tissue abnormality. IMPRESSION: Streaky atelectasis versus scarring in the left midlung, similar in appearance to the previous study. No acute consolidation.
--- NOTE | 2018-04-22 17:17 | Emergency Department Report ---
Minor Respiratory - HPI Chief Complaint: Headache Stated Complaint: COUGHING/HEADACHE Duration: 2 Days Pain Location: Nose Severity: moderate Minor Respiratory: Yes Rhinorrhea, Yes Able to Tolerate Fluids, Yes Cough, Yes Sick Contacts, Yes Fever, No Sore Throat, No Ear Pain, No Hemoptysis, No Chest Pain, No Shortness of Breath Other History: This is a 57-year-old -[place] female who presents with cough, fever, and congestion for 2 days. Patient states she is currently taking Tussionex DM and luz with no improvement of symptoms. She also complains of some intermittent body aches. States there are multiple people at her job and possibly caught something there. She denies chest pain, shortness of breath, nausea or vomiting, or abdominal pain. ED Review of Systems ROS: Stated complaint: COUGHING/HEADACHE Other details as noted in HPI Constitutional: fever. denies: chills ENT: congestion. denies: ear pain, throat pain, dental pain, hearing loss, epistaxis Respiratory: cough. denies: shortness of breath, wheezing Cardiovascular: denies: chest pain, palpitations Gastrointestinal: denies: abdominal pain, nausea, diarrhea Musculoskeletal: myalgia. denies: back pain, joint swelling, arthralgia Neurological: headache. denies: weakness, paresthesias Psychiatric: denies: anxiety, depression ED Past Medical Hx - Past Medical History Hx Hypertension: Yes Hx Asthma: Yes Additional medical history: allergies, normal coronaries,chronic sinus infections - Surgical History Additional Surgical History: brain tumor removed,HYSTERECTOMY - Social History Smoking Status: Never Smoker Substance Use Type: None - Medications Home Medications: Home Medications Medication Instructions Recorded Confirmed Last Taken Type Carvedilol [Coreg] 3.125 mg PO BID #60 tablet 07/18/15 03/17/17 01/08/16 Rx Budesoni/Formotero 160-4.5(Nf) 2 puff IH BID #1 inha 04/05/16 03/17/17 Unknown Rx [Symbicort 160-4.5 (Nf)] guaiFENesin [Robitussin] 200 mg PO Q4H PRN #30 oral.liqd 04/05/16 03/17/17 Unknown Rx ALBUTEROL Inhaler (OR & NICU) 2 puff IH QID PRN #1 inhalation 11/17/16 03/17/17 Unknown Rx [ProAir HFA Inhaler] Loratadine [Claritin] 10 mg PO DAILY 03/17/17 03/17/17 Unknown History Losartan/Hydrochlorothiazide 1 tab PO QDAY 03/17/17 03/17/17 Unknown History [Hyzaar 50-12.5 TAB] ALBUTEROL Inhaler (OR & NICU) 2 puff IH QID PRN #1 inhalation 03/18/17 Unknown Rx [ProAir HFA Inhaler] Phenylephrine/Dm/Acetaminop/GG 20 ml PO Q4HR PRN #180 liquid 03/18/17 Unknown Rx [Mucinex Vhfj-Uco-Jhrvvwuefe Lq] Prednisone [predniSONE 10 mg 10 mg PO .TAPER #1 tab.ds.pk 03/18/17 Unknown Rx (6-Day Pack, 21 Tabs)] levoFLOXacin [Levaquin TAB] 500 mg PO QDAY #10 tablet 03/18/17 Unknown Rx Azithromycin [Zithromax Z-SAMIRA] 250 mg PO DAILY #6 tablet 07/16/17 Unknown Rx Benzonatate [Tessalon Perle] 100 mg PO Q8H PRN #20 capsule 07/16/17 Unknown Rx Ibuprofen [Motrin] 600 mg PO Q8H PRN #30 tablet 07/16/17 Unknown Rx Loratadine [Claritin] 10 mg PO DAILY #30 tablet 07/16/17 Unknown Rx Benzonatate [Tessalon Perle] 100 mg PO TID PRN #30 capsule 04/22/18 Unknown Rx Fluticasone [Flonase] 1 spray NS QDAY #1 bottle 04/22/18 Unknown Rx Guaifenesin/Dm/Pseudoephedrine 1 each PO QID #14 tablet 04/22/18 Unknown Rx [Desgen Dm Tablet] Minor Respiratory Exam - Exam General: Vital signs noted. No distress. Alert and acting appropriately. HEENT: Yes Pharyngeal Erythema (erythematous posterior pharynx, uvula midline), Yes Moist Mucous Membranes, Yes Rhinorrhea (turbinates pale, enlarged, with ashleigh r discharge), No Pharyngeal Exudates, No Conjuctival Injection, No Frontal Tenderness, No Maxillary Tenderness Ear: Neither TM Bulge, Neither TM Erythema, Neither EAC Pain, Neither EAC Discharge Neck: Yes Supple, No Adenopathy Lungs: Yes Good Air Exchange, No Wheezes, No Ronchi, No Stridor, No Cough, No Labored Respirations, No Retractions, No Use of Accessory Muscles, No Other Abnormal Lung Sounds Heart: Yes Regular, No Murmur Abdomen: Yes Normal Bowel Sounds, No Tenderness, No Peritoneal Signs Skin: No Rash, No Edema Neurologic: Alert and oriented, no deficits. Musculoskeletal: Unremarkable. ED Course Vital Signs 04/22/18 14:10 Temperature 100.9 F H Pulse Rate 94 H Respiratory 16 Rate Blood Pressure 158/84 O2 Sat by Pulse 96 Oximetry ED Medical Decision Making - Radiology Data Radiology results: report reviewed FINAL REPORT EXAM: XR CHEST ROUTINE 2V HISTORY: cough, fever COMPARISON: Chest radiograph performed on 07/16/2017 TECHNIQUE: Frontal and lateral views of the chest FINDINGS: The cardiomediastinal silhouette is normal in appearance. There is streaky atelectasis versus scarring in the left midlung, similar to the previous study. No pleural effusion or pneumothorax. No acute bony or soft tissue abnormality. IMPRESSION: Streaky atelectasis versus scarring in the left midlung, similar in appearance to the previous study. No acute consolidation. - Medical Decision Making 57 y.o. female that presents with URI symptoms. Patient examined by me and stable. No distress noted. Temperature is elevated. Chest xray has been obtained and dictated by radiologist. Streaky atelectasis versus scarring in the left midlung, similar in appearance to the previous study. No acute consolidation. Patient notified of x-ray results with no questions. Physical findings susceptible of viral syndrome. Start Flonase, Discharged home stable. Encouraged to do supportive care for URI. Follow up with Primary Care Provider in 2-3 days. Critical care attestation.: If time is entered above; I have spent that time in minutes in the direct care of this critically ill patient, excluding procedure time. ED Disposition Clinical Impression: Cough in adult, Acute viral syndrome Upper respiratory infection Qualifiers: URI type: acute nasopharyngitis (common cold) Qualified Code(s): J00 - Acute nasopharyngitis [common cold] Disposition: - TO HOME OR SELFCARE Is pt being admited?: No Does the pt Need Aspirin: No Condition: Stable Instructions: Upper Respiratory Infection (ED), Viral Syndrome (ED), Cold Symptoms (ED) Additional Instructions: Increase fluid intake and rest. Wash hands frequently. Continue taking Tylenol or ibuprofen to control fever. F/U with Primary Care Provider. Return to ER if fever, SOB, or difficulty breathing after 48 hours of supportive care. Prescriptions: Benzonatate [Tessalon Perle] 100 mg PO TID PRN #30 capsule PRN Reason: Cough Fluticasone [Flonase] 1 spray NS QDAY #1 bottle Guaifenesin/Dm/Pseudoephedrine [Desgen Dm Tablet] 1 each PO QID #14 tablet Referrals: [facility] [Provider Group] - 3-5 Days [facility] [Provider Group] - 3-5 Days [facility] [Provider Group] - 3-5 Days Forms: Work/School Release Form(ED) Time of Disposition: 17:26
== END 2018-04-22 18:40 | disposition home or self-care (01) ==
LOC: ED 14:04
DX: J00 Acute nasopharyngitis [common cold] (principal); B34.9 Viral infection, unspecified; J45.909 Unspecified asthma, uncomplicated; Z90.710 Acquired absence of both cervix and uterus; Z79.899 Other long term (current) drug therapy; Z88.0 Allergy status to penicillin
CPT/HCPCS: 71046; 99283

== ENCOUNTER 2018-05-25 16:48 | Emergency (ER) | payer OTHER ==
[2018-05-25 17:22] VITALS: BP 164/99
--- NOTE | 2018-05-25 17:22 | Emergency Department Report ---
Blank Doc - Documentation Documentation: pt presents with left foot pain and swelling. denies injury, fall trauma able to flex and extend no deformity seen PLAn XRAY reevaluate
[2018-05-25 18:30] LABS: Basophils % (Auto) 0.2 % (0.0-1.8); Eosinophils # (Auto) 0.4 K/mm3 (0.0-0.4); Eosinophils % (Auto) 5.5 % (0.0-4.3); Hematocrit 34.2 % (30.3-42.9); Hemoglobin 11.2 gm/dl (10.1-14.3); Lymphocytes # (Auto) 2.2 K/mm3 (1.2-5.4); Lymphocytes % (Auto) 29.8 % (13.4-35.0); Mean Corpuscular HGB Conc 33 % (30-34); Mean Corpuscular Volume 85 fl (79-97); Monocytes # (Auto) 0.7 K/mm3 (0.0-0.8); Monocytes % (Auto) 9.5 % (0.0-7.3); Platelet Count 289 K/mm3 (140-440); Red Blood Count 4.04 M/mm3 (3.65-5.03); Red Cell Distribution Width 15.9 % (13.2-15.2)
[2018-05-25 18:54] LABS: BUN/Creatinine Ratio 13; Blood Urea Nitrogen 8 mg/dL (7-17); Hemolysis Index 4
[2018-05-25 19:11] LABS: Uric Acid 6.1 mg/dL (3.5-7.6)
--- NOTE | 2018-05-25 19:13 | Emergency Department Report ---
HPI - General Chief Complaint: Extremity Problem,Nontraumatic Time Seen by Provider: 05/25/18 17:20 - HPI HPI: 58-year-old female presents to the emergency department with a complaint of a few days of progressively worsening left foot pain and swelling. The patient says that she works on her feet constantly at [employer]. She also says that it is always possible that she was bitten by something or rolled her foot somehow but says that she does not know of any obvious incidents or trauma. She has not taken anything for her symptoms prior to presentation. She has a past medical history of asthma and hypertension. No recent travel or sick contacts at home. She denies any skin color change, warmth, rash or lesions. ED Past Medical Hx - Past Medical History Previous Medical History?: Yes Hx Hypertension: Yes Hx Asthma: Yes Additional medical history: allergies, normal coronaries,chronic sinus infections - Surgical History Past Surgical History?: Yes Additional Surgical History: brain tumor removed,HYSTERECTOMY - Social History Smoking Status: Never Smoker Substance Use Type: None - Medications Home Medications: Home Medications Medication Instructions Recorded Confirmed Last Taken Type RX: Carvedilol [Coreg] 3.125 mg PO BID #60 tablet 07/18/15 03/17/17 01/08/16 Rx Budesoni/Formotero 160-4.5(Nf) 2 puff IH BID #1 inha 04/05/16 03/17/17 Unknown Rx [Symbicort 160-4.5 (Nf)] RX: guaiFENesin [Robitussin] 200 mg PO Q4H PRN #30 oral.liqd 04/05/16 03/17/17 Unknown Rx RX: ALBUTEROL Inhaler (OR & NICU) 2 puff IH QID PRN #1 inhalation 11/17/16 03/17/17 Unknown Rx [ProAir HFA Inhaler] Loratadine [Claritin] 10 mg PO DAILY 03/17/17 03/17/17 Unknown History RX: Losartan/Hydrochlorothiazide 1 tab PO QDAY 03/17/17 03/17/17 Unknown History [Hyzaar 50-12.5 TAB] Phenylephrine/Dm/Acetaminop/GG 20 ml PO Q4HR PRN #180 liquid 03/18/17 Unknown Rx [Mucinex Beib-Plf-Iuunjegsly Lq] RX: ALBUTEROL Inhaler (OR & NICU) 2 puff IH QID PRN #1 inhalation 03/18/17 Unknown Rx [ProAir HFA Inhaler] RX: Prednisone [predniSONE 10 mg 10 mg PO .TAPER #1 tab.ds.pk 03/18/17 Unknown Rx (6-Day Pack, 21 Tabs)] levoFLOXacin [Levaquin TAB] 500 mg PO QDAY #10 tablet 03/18/17 Unknown Rx Benzonatate [Tessalon Perle] 100 mg PO Q8H PRN #20 capsule 07/16/17 Unknown Rx Loratadine [Claritin] 10 mg PO DAILY #30 tablet 07/16/17 Unknown Rx RX: Azithromycin [Zithromax Z-SAMIRA] 250 mg PO DAILY #6 tablet 07/16/17 Unknown Rx Fluticasone [Flonase] 1 spray NS QDAY #1 bottle 04/22/18 Unknown Rx RX: Benzonatate [Tessalon Perle] 100 mg PO TID PRN #30 capsule 04/22/18 Unknown Rx RX: Guaifenesin/Dm/Pseudoephedrine 1 each PO QID #14 tablet 04/22/18 Unknown Rx [Desgen Dm Tablet] RX: Ibuprofen [Motrin 600 MG tab] 600 mg PO Q8H PRN #20 tablet 05/25/18 Unknown Rx ED Review of Systems ROS: Stated complaint: LEFT FOOT SWOLLEN Other details as noted in HPI Comment: All other systems reviewed and negative Constitutional: denies: chills, fever Eyes: denies: eye pain, vision change ENT: denies: ear pain, throat pain Respiratory: denies: cough, shortness of breath Cardiovascular: edema (left foot). denies: chest pain Gastrointestinal: denies: abdominal pain, vomiting Genitourinary: denies: dysuria, discharge Musculoskeletal: joint swelling, arthralgia Skin: denies: rash, lesions Neurological: denies: headache, weakness Physical Exam - Physical Exam Vital Signs: Vital Signs 05/25/18 17:20 Temperature 97.9 F Pulse Rate 73 Respiratory 16 Rate Blood Pressure 164/99 O2 Sat by Pulse 99 Oximetry Physical Exam: GENERAL: The patient is well-developed well-nourished. HEENT: Normocephalic. Atraumatic. Patient has moist mucous membranes. EYES: Extraocular motions are intact. NECK: Supple. Trachea is midline. CHEST/LUNGS: Clear to auscultation. There is no respiratory distress noted. HEART/CARDIOVASCULAR: Regular. There is no tachycardia. There is no obvious murmur. ABDOMEN: There is no abdominal distention. SKIN: Skin is warm and dry. There is some mild nonpitting swelling to the dorsum of the left foot. NEURO: The patient is awake, alert, and oriented. The patient is cooperative. The patient has no focal neurologic deficits. The patient has normal speech. MUSCULOSKELETAL: Tenderness to palpation to the left dorsal midfoot. There is no limitation range of motion. Pedal pulses +2 over 4 to the affected left foot. ED Course Vital Signs 05/25/18 17:20 Temperature 97.9 F Pulse Rate 73 Respiratory 16 Rate Blood Pressure 164/99 O2 Sat by Pulse 99 Oximetry ED Medical Decision Making - Lab Data Result diagrams: 05/25/18 18:18 05/25/18 18:18 - Radiology Data Radiology results: image reviewed interpreted by me: X-ray of the foot does not show any fracture, dislocation or any acute process. - Medical Decision Making Patient presents with complaint of foot pain that is atraumatic. She has a job where she is constantly on her feet so it may be repetitive stress. Labs were unremarkable including a negative uric acid level. X-ray did not show any fracture, dislocation or any acute process. Given multiple referrals for podiatry. - Differential Diagnosis stress fracture, strain, sprain, contusion, gout Critical Care Time: No Critical care attestation.: If time is entered above; I have spent that time in minutes in the direct care of this critically ill patient, excluding procedure time. ED Disposition Clinical Impression: Left foot pain, Swelling of left foot Disposition: DC-01 TO HOME OR SELFCARE Is pt being admited?: No Condition: Stable Instructions: Arthralgia (ED) Additional Instructions: Please follow-up with your primary care physician in the next few days. I'm also giving him some referrals for local podiatrists to follow up regarding her foot pain and swelling. He can try rest, ice, compression and elevation. Return to the emergency Department with any worsening of your symptoms or any acute distress. Prescriptions: RX: Ibuprofen [Motrin 600 MG tab] 600 mg PO Q8H PRN #20 tablet PRN Reason: Pain Referrals: TETE SHER MD [Staff Physician] - 3-5 Days GREGORIO QUESADA DPM [Staff Physician] - 3-5 Days Time of Disposition: 19:13
--- NOTE | 2018-05-25 20:00 | XRay Report ---
FINAL REPORT EXAM: XR FOOT 2V LT HISTORY: foot pain is TECHNIQUE: 2 views Left foot PRIORS: None. FINDINGS: No fracture or dislocation identified. Joint spaces are within normal limits. No erosive bony change identified. No bony lesions are identified. IMPRESSION: Negative foot series
== END 2018-05-25 19:48 | disposition home or self-care (01) ==
LOC: ED 16:48
DX: M79.672 Pain in left foot (principal); M79.89 Other specified soft tissue disorders; I10 Essential (primary) hypertension; J45.909 Unspecified asthma, uncomplicated; Z90.710 Acquired absence of both cervix and uterus
CPT/HCPCS: 36415; 80048; 84550; 85025

== ENCOUNTER 2019-03-16 17:52 | Emergency (ER) | payer MEDICARE, OTHER ==
--- NOTE | 2019-03-16 19:58 | XRay Report ---
CHEST 2 VIEWS INDICATION / CLINICAL INFORMATION: Cough. COMPARISON: 08/29/2018 FINDINGS: SUPPORT DEVICES: None. HEART / MEDIASTINUM: Normal heart size. Atherosclerosis in the thoracic aorta. LUNGS / PLEURA: There is a mild parenchymal opacity in the right lower lobe without significant pleur al effusion. No pneumothorax. ADDITIONAL FINDINGS: No significant additional findings. IMPRESSION: 1. Right lower lobe parenchymal opacity that may reflect developing infectious or inflammatory proces s. Signer Name: Silvestre Anaya MD Signed: 03/16/2019 7:54 PM Workstation Name: [id number]
[2019-03-16] MEDS ORDERED: levoFLOXacin 750 MG TAB PO ONE (21:29)
--- NOTE | 2019-03-16 21:35 | Emergency Department Report ---
- General Chief Complaint: Upper Respiratory Infection Stated Complaint: COUGH Time Seen by Provider: 03/16/19 21:18 Source: patient Mode of arrival: Ambulatory Limitations: No Limitations - History of Present Illness Initial Comments: Mrs. Sal is a 58-year-old female with history of asthma and hypertension allergic rhinitis, recurrent sinus infections presents with nasal congestion cough for 2 weeks. [id number] medications for relief. Productive cough with mucus. No fever. Mild symptoms. MD Complaint: cough, nasal congestion -: Gradual, week(s) (2) Severity: mild Consistency: constant Improves With: nothing Worsens With: nothing Context: sick contacts Associated Symptoms: denies other symptoms - Related Data Previous Rx's Medication Instructions Recorded Last Taken Type carvediloL [Coreg] 3.125 mg PO BID #60 tablet 07/18/15 01/08/16 Rx Budesoni/Formotero 160-4.5(Nf) 2 puff IH BID #1 inha 04/05/16 Unknown Rx [Symbicort 160-4.5 (Nf)] ALBUTEROL Inhaler (OR & NICU) 2 puff IH QID PRN #1 inhalation 11/17/16 Unknown Rx [ProAir HFA Inhaler] DOXYCYCLINE Hyclate [Vibramycin 100 mg PO BID #10 capsule 08/30/18 Unknown Rx CAP] Fluticasone [Flonase] 1 spray NS QDAY #1 bottle 08/30/18 Unknown Rx ALBUTEROL NEB's [Proventil 0.083% 2.5 mg IH TID PRN #1 box 03/16/19 Unknown Rx NEBS] Loratadine 10 mg PO DAILY 14 Days #14 capsule 03/16/19 Unknown Rx levoFLOXacin [Levaquin] 750 mg PO QDAY 4 Days #4 tablet 03/16/19 Unknown Rx predniSONE [Deltasone] 3 tab PO QDAY 3 Days #9 tab 03/16/19 Unknown Rx Allergies Allergy/AdvReac Type Severity Reaction Status Date / Time Penicillins Allergy Rash Verified 05/25/18 17:22 ED Review of Systems ROS: Stated complaint: COUGH Other details as noted in HPI Comment: All other systems reviewed and negative Constitutional: denies: fever, malaise ENT: congestion Respiratory: cough Cardiovascular: denies: chest pain ED Past Medical Hx - Past Medical History Previous Medical History?: Yes Hx Hypertension: Yes Hx Asthma: Yes Additional medical history: allergies, normal coronaries,chronic sinus infections - Surgical History Past Surgical History?: Yes Additional Surgical History: brain tumor removed,HYSTERECTOMY - Social History Smoking Status: Never Smoker Substance Use Type: Alcohol - Medications Home Medications: Home Medications Medication Instructions Recorded Confirmed Last Taken Type carvediloL [Coreg] 3.125 mg PO BID #60 tablet 07/18/15 08/17/18 01/08/16 Rx Budesoni/Formotero 160-4.5(Nf) 2 puff IH BID #1 inha 04/05/16 03/17/17 Unknown Rx [Symbicort 160-4.5 (Nf)] ALBUTEROL Inhaler (OR & NICU) 2 puff IH QID PRN #1 inhalation 11/17/16 08/17/18 Unknown Rx [ProAir HFA Inhaler] DOXYCYCLINE Hyclate [Vibramycin 100 mg PO BID #10 capsule 08/30/18 Unknown Rx CAP] Fluticasone [Flonase] 1 spray NS QDAY #1 bottle 08/30/18 Unknown Rx ALBUTEROL NEB's [Proventil 0.083% 2.5 mg IH TID PRN #1 box 03/16/19 Unknown Rx NEBS] Loratadine 10 mg PO DAILY 14 Days #14 capsule 03/16/19 Unknown Rx levoFLOXacin [Levaquin] 750 mg PO QDAY 4 Days #4 tablet 03/16/19 Unknown Rx predniSONE [Deltasone] 3 tab PO QDAY 3 Days #9 tab 03/16/19 Unknown Rx ED Physical Exam - General Limitations: No Limitations General appearance: alert, in no apparent distress - Head Head exam: Present: atraumatic, normocephalic - Eye Eye exam: Present: normal appearance - ENT ENT exam: Present: mucous membranes moist - Neck Neck exam: Present: normal inspection, full ROM - Respiratory Respiratory exam: Present: normal lung sounds bilaterally. Absent: respiratory distress, wheezes, rales, rhonchi - Cardiovascular Cardiovascular Exam: Present: regular rate, normal rhythm, normal heart sounds. Absent: systolic murmur, diastolic murmur, rubs, gallop - GI/Abdominal GI/Abdominal exam: Present: soft, normal bowel sounds. Absent: distended, tenderness, guarding, rebound - Extremities Exam Extremities exam: Present: normal inspection - Back Exam Back exam: Present: normal inspection - Neurological Exam Neurological exam: Present: alert, oriented X3 - Psychiatric Psychiatric exam: Present: normal affect, normal mood - Skin Skin exam: Present: warm, dry, intact, normal color. Absent: rash ED Course Vital Signs 03/16/19 18:03 Temperature 97.8 F Pulse Rate 74 Respiratory 18 Rate Blood Pressure 150/84 O2 Sat by Pulse 94 Oximetry ED Medical Decision Making - Radiology Data Radiology results: report reviewed Right lower lobe parenchymal opacity possible infection versus inflammatory process according to radiology report on chest radiographs - Medical Decision Making Mrs. Sal presents with upper respiratory infectious symptoms nasal congestion and cough. Due to x-ray findings will cover for possible pneumonia with Levaquin. Prescribed albuterol nebulized solution, Levaquin, prednisone, loratadine. Given referral to a new PCP. Her formal PCP does not accept her new insurance. Critical care attestation.: If time is entered above; I have spent that time in minutes in the direct care of this critically ill patient, excluding procedure time. ED Disposition Clinical Impression: Asthma, Respiratory infection Disposition: DC- TO HOME OR SELFCARE Is pt being admited?: No Does the pt Need Aspirin: No Condition: Stable Additional Instructions: Please return to emergency department if your symptoms worsen. Prescriptions: predniSONE [Deltasone] 3 tab PO QDAY 3 Days #9 tab levoFLOXacin [Levaquin] 750 mg PO QDAY 4 Days #4 tablet Loratadine 10 mg PO DAILY 14 Days #14 capsule ALBUTEROL NEB's [Proventil 0.083% NEBS] 2.5 mg IH TID PRN #1 box PRN Reason: Wheezing Referrals: BRIT LIM MD [Staff Physician] - 3-5 Days Forms: Work/School Release Form(ED)
[2019-03-16 22:48] VITALS: BP 139/79
== END 2019-03-16 22:49 | disposition home or self-care (01) ==
LOC: ED 17:52
DX: J45.909 Unspecified asthma, uncomplicated (principal); I10 Essential (primary) hypertension; Z90.710 Acquired absence of both cervix and uterus; Z79.899 Other long term (current) drug therapy; Z88.0 Allergy status to penicillin
CPT/HCPCS: 71046; 99282